=== PATIENT | female | born 1965 | race Caucasian/White ===

== ENCOUNTER → 2021-07-06 08:11 | Outpatient (BNVA) | payer OTHER, SELFPAY | PROVIDERS: PCP Internal Medicine; Visit Provider Nurse Practitioner Family | DX: Z13.89 Encounter for screening for other disorder (principal) ==

== ENCOUNTER → 2021-07-07 10:56 | Outpatient (BNVA) | payer OTHER, SELFPAY | PROVIDERS: PCP Internal Medicine; Visit Provider Psychiatry & Neurology Neurology | DX: G51.31 Clonic hemifacial spasm, right (principal); G47.10 Hypersomnia, unspecified; R06.83 Snoring; Z72.820 Sleep deprivation | CPT/HCPCS: 64612; 99212; J0585 ==

== ENCOUNTER → 2021-10-20 11:44 | Outpatient (BNVA) | payer OTHER, SELFPAY | PROVIDERS: PCP Internal Medicine; Visit Provider Psychiatry & Neurology Neurology | DX: G51.31 Clonic hemifacial spasm, right (principal) | CPT/HCPCS: 64612; 99211; J0585 ==

== ENCOUNTER → 2022-01-27 12:52 | Outpatient (BNVA) | payer OTHER, SELFPAY | PROVIDERS: PCP Internal Medicine; Visit Provider Psychiatry & Neurology Neurology | DX: G51.31 Clonic hemifacial spasm, right (principal) | CPT/HCPCS: 64612; 99211; J0585 ==

== ENCOUNTER → 2022-03-08 13:59 | Outpatient (BNVA) | payer OTHER, SELFPAY | PROVIDERS: PCP Internal Medicine; Visit Provider Nurse Practitioner Family | DX: Z13.89 Encounter for screening for other disorder (principal) ==

== ENCOUNTER → 2022-06-24 13:34 | Outpatient (BNVA) | payer MEDICAID, SELFPAY | PROVIDERS: PCP Internal Medicine; Visit Provider Psychiatry & Neurology Neurology | DX: G51.31 Clonic hemifacial spasm, right (principal) | CPT/HCPCS: 64612; 99211; J0585 ==

== ENCOUNTER 2022-09-27 12:59 | Outpatient (AMB) | payer MEDICAID, SELFPAY ==
--- NOTE | 2022-09-27 13:00 | MHC.OFFVIS ---
Intake Vital Signs 09/27/22 13:01 Height 5 ft 3 in Weight 212 lb 6 oz BMI 37.6 BP 130/80 Blood Pressure Location Rt brachial Position Sitting Pulse 76 Pulse Source Pulse Oximeter Pulse Oximetry (%) 97 Oxygen Delivery Method Room Air Intake Visit Reasons: botox(b&b)-confirmed Intake Note: pt is here for botox Forming Process Line Worker Required: No Accompanied by: Self / Same As Patient Allergies Aspirin Allergy (Unknown, Uncoded 09/27/22 13:00) swelling Motrin Allergy (Unknown, Uncoded 09/27/22 13:00) swelling Percocet Allergy (Unknown, Uncoded 09/27/22 13:00) swelling HPI HPI Comments History of Present Illness Details ?Right hemifacial spasm ??? Dizziness... History of present illness: ? 57y/o female comes for treatment with botox . ??? side effects were explained again and patient agreed to the procedure . - side effects include increased weakness , droopy eyelids weakness of facial muscles etc. ??? Botulinum toxin type A 100 units lot number [id number] June 2024 was diluted with 1 cc of normal saline at a concentration of 10units in 0.1cc. ??? Muscles injected - ??? R lateral canthus 15units ??? Right upper eyelid laterally - 10units ??? Right lateral lower eyelid - 15 units medila lower eyelid - 5 units ??? Right upper lip 5 units ??? Right nasolabial fold - 15 units ??? Right zygomaticus major - 15 units ??? Total used 80 units ??? Discarded 20 units PFSH Medical History Anxiety Asthma Bilateral headaches Depression Diabetes HTN (hypertension) Hyperlipidemia Obesity Seizure Sleep disorder Trigeminal neuralgia Surgical History H/O endoscopy Hx of cholecystectomy Family History Father High blood pressure High cholesterol Heart disease Mother Arthritis Osteoporosis Heart disease High cholesterol Daughter Kidney transplant recipient Brother Kidney problem Social History Household Members: Spouse Alcohol intake: never Patient Tobacco Use Status: Never used Tobacco Physical Exam Vital Signs: Last Vital Signs Pulse 76 09/27/22 13:01 BP 130/80 09/27/22 13:01 Pulse Ox 97 09/27/22 13:01 Oxygen Delivery Method Room Air 09/27/22 13:01 BMI result Body Mass Index 37.6 Const General: cooperative and no acute distress Orientation/consciousness: patient oriented x3 Resp Effort & Inspection: normal respiratory effort and able to speak in complete sentences Neuro Other: Right upper eye lid droop Right lower facial hemispasm. Speech clear. General: patient oriented x3 Cognition (Neuro): normal cognition Psych Appearance: grossly normal Mental Status: mental status grossly normal Affect: normal affect Attitude: cooperative Office Procedures Botulinum toxin Injection 94018 - Facial Nerve Procedure code (CPT) selection complete Office Meds onabotulinumtoxinA Performing Provider: Michelle Sánchez MD Administered by: Michelle Sánchez MD on 09/27/22 13:35 Dose Route Admin Location Lot Number Expiration Date NDC Management Liaison 80 unit subcut [id number] 06/11/24 0398-5928-32 [employer] Comments: see HPI Assessment & Plan Assessment & Plan (1) 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
[2022-09-27 13:01] VITALS: BP 130/80; PULSE 76; O2SAT 97; BMI 37.6
== END 2022-09-27 13:25 | disposition home or self-care (01) ==
PROVIDERS: Visit Provider Psychiatry & Neurology Neurology
DX: G51.31 Clonic hemifacial spasm, right (principal)
CPT/HCPCS: 64612

== ENCOUNTER → 2022-09-27 12:59 | Outpatient (BNVA) | payer MEDICAID, SELFPAY | PROVIDERS: Visit Provider Psychiatry & Neurology Neurology | DX: G51.31 Clonic hemifacial spasm, right (principal) | CPT/HCPCS: 64612; J0585 ==

== ENCOUNTER 2022-10-12 08:48 | Outpatient (REF) | payer MEDICAID, SELFPAY ==
--- NOTE | ~2022-10-12 | MR_ITS ---
EXAMINATION: MR BRAIN WITHOUT AND WITH CONTRAST MR ANGIOGRAPHY HEAD WITHOUT CONTRAST CLINICAL INFORMATION: Sharp pain on left side of face and in teeth. COMPARISON: Brain MRI dated 02/11/2022. TECHNIQUE: Multiplanar, multisequence imaging of the brain was obtained without and with intravenous administration of contrast. 3-D xdft-wl-sknuvz MR angiography is performed. Multiple 3-D reformatted images are processed on the technologist workstation. Intravenous contrast: Gadavist 10 mL. FINDINGS: No diffusion abnormalities are identified to suggest an acute infarct. The ventricles are normal in size. No mass effect or midline shift is seen. Stable minimal scattered white matter signal changes noted of indeterminate clinical significance. No extra-axial fluid collections are seen. The brainstem and cerebellum are normal. On postcontrast imaging, there is no abnormal parenchymal or leptomeningeal enhancement. No pathologic magnetic susceptibility artifact is identified on the gradient refocused acquisition. There is no vascular compression of the cisternal segments of the trigeminal nerves. The CSF in [place] is preserved. The foramina ovale are normal. No cerebellopontine angle lesion is seen. There is no abnormal leptomeningeal enhancement corresponding to basilar cisterns. The third division of the trigeminal nerve is normal along its course in the textile clothing and footwear mechanic spaces. No marrow signal abnormality is seen within the mandible. There is no abnormal enhancement or edematous change corresponding to the second division of the trigeminal nerve within the infraorbital foramen or at the level of foramen rotundum. The cavernous sinuses opacify symmetrically. There are jbpj-so-iguohret degenerative changes in the temporomandibular joints. The craniovertebral junction, marrow signal, and midline structures are normal. The major intracranial flow voids at the level of the [place] are preserved. The dural venous sinus flow voids are maintained. The mastoid air cells and paranasal sinuses are well aerated. The orbits are normal. The pituitary axis structures are normal. MRA of the [place] demonstrates a normal caliber to the anterior and posterior circulation vasculature. No stenoses or occlusions are seen. No vascular malformation or aneurysms are identified. MR/MR head/brain wo/w con IMPRESSION: 1. Normal MRA of the head. No acute intracranial process. Stable minimal scattered white matter signal changes. No abnormal enhancement. 2. No visible neurovascular compression of the cisternal trigeminal nerve. 3. Jitk-cl-xwnliuqc degenerative changes of the temporomandibular joints.
--- NOTE | ~2022-10-12 | MR_ITS ---
EXAMINATION: MR BRAIN WITHOUT AND WITH CONTRAST MR ANGIOGRAPHY HEAD WITHOUT CONTRAST CLINICAL INFORMATION: Sharp pain on left side of face and in teeth. COMPARISON: Brain MRI dated 02/11/2022. TECHNIQUE: Multiplanar, multisequence imaging of the brain was obtained without and with intravenous administration of contrast. 3-D umns-kh-dncbzw MR angiography is performed. Multiple 3-D reformatted images are processed on the technologist workstation. Intravenous contrast: Gadavist 10 mL. FINDINGS: No diffusion abnormalities are identified to suggest an acute infarct. The ventricles are normal in size. No mass effect or midline shift is seen. Stable minimal scattered white matter signal changes noted of indeterminate clinical significance. No extra-axial fluid collections are seen. The brainstem and cerebellum are normal. On postcontrast imaging, there is no abnormal parenchymal or leptomeningeal enhancement. No pathologic magnetic susceptibility artifact is identified on the gradient refocused acquisition. There is no vascular compression of the cisternal segments of the trigeminal nerves. The CSF in [place] is preserved. The foramina ovale are normal. No cerebellopontine angle lesion is seen. There is no abnormal leptomeningeal enhancement corresponding to basilar cisterns. The third division of the trigeminal nerve is normal along its course in the church communications administrator spaces. No marrow signal abnormality is seen within the mandible. There is no abnormal enhancement or edematous change corresponding to the second division of the trigeminal nerve within the infraorbital foramen or at the level of foramen rotundum. The cavernous sinuses opacify symmetrically. There are iweq-wk-cawxfdtu degenerative changes in the temporomandibular joints. The craniovertebral junction, marrow signal, and midline structures are normal. The major intracranial flow voids at the level of the [place] are preserved. The dural venous sinus flow voids are maintained. The mastoid air cells and paranasal sinuses are well aerated. The orbits are normal. The pituitary axis structures are normal. MRA of the [place] demonstrates a normal caliber to the anterior and posterior circulation vasculature. No stenoses or occlusions are seen. No vascular malformation or aneurysms are identified. MR/MR angio head wo con IMPRESSION: 1. Normal MRA of the head. No acute intracranial process. Stable minimal scattered white matter signal changes. No abnormal enhancement. 2. No visible neurovascular compression of the cisternal trigeminal nerve. 3. Fljz-ts-znwhrgib degenerative changes of the temporomandibular joints.
== END 2022-10-12 08:49 | disposition home or self-care (01) ==
LOC: HO.MRI 08:48
PROVIDERS: PCP Internal Medicine; Visit Provider Psychiatry & Neurology Neurology
DX: G50.0 Trigeminal neuralgia (principal)
CPT/HCPCS: 70544; 70553; A9585

== ENCOUNTER 2022-12-29 13:36 | Outpatient (AMB) | payer MEDICAID, SELFPAY ==
--- NOTE | 2022-12-29 13:48 | MHC.OFFVIS ---
Intake Vital Signs 12/29/22 13:52 Height 5 ft 3 in Weight 212 lb 8 oz BMI 37.6 BP 138/84 Blood Pressure Location Lt brachial Position Sitting Respiration 16 Pulse 86 Pulse Source Pulse Oximeter Pulse Oximetry (%) 99 Oxygen Delivery Method Room Air Intake Visit Reasons: botox(b&b)-confirmed Intake Note: Pt presents to office for Botox injections. Allergies Aspirin Allergy (Unknown, Uncoded 12/29/22 13:49) swelling Motrin Allergy (Unknown, Uncoded 12/29/22 13:49) swelling Percocet Allergy (Unknown, Uncoded 12/29/22 13:49) swelling Medication List - Last Reconciled 12/29/22 by Michelle Sánchez MD acetaminophen (Pain Relief Extra Strength (acetaminophen)) 500 mg PO Q6H PRN atorvastatin 20 mg PO DAILY bupropion HCl 150 mg PO DAILY xjrgdbpanm-tpuqzpzfzdyuq-grqs 50-325-40 mg 1 tab PO Q4H PRN carbamazepine 200 mg PO BID chlorthalidone 25 mg PO DAILY clonazepam 0.5 mg PO DAILY PRN fluoxetine 20 mg PO DAILY gabapentin 800 mg PO BID hydroxyzine pamoate 25 - 50 mg PO BID PRN lisinopril 5 mg PO DAILY loratadine 10 mg PO DAILY metformin ER 1,000 mg PO BID montelukast 10 mg PO DAILY omeprazole 20 mg PO DAILY onabotulinumtoxinA (Botox) 100 units subcut .90 days polyethylene glycol 3350 17 grams PO DAILY propranolol 20 mg PO DAILY sertraline 25 mg PO DAILY sitagliptin phosphate (Januvia) 100 mg PO DAILY sucralfate 10 mL PO QID sumatriptan succinate 100 mg PO ONCE PRN white petrolatum-mineral oil 94-3 % (Systane Nighttime) 0.25 inches ophthalmic-Right BID PRN 7 days HPI HPI Comments History of Present Illness Details ?Right hemifacial spasm ??? Dizziness... History of present illness: ? 57y/o female comes for treatment with botox . ??? side effects were explained again and patient agreed to the procedure . - side effects include increased weakness , droopy eyelids weakness of facial muscles etc. ??? Botulinum toxin type A 100 units lot number [id number] Apr 2025 was diluted with 1 cc of normal saline at a concentration of 10units in 0.1cc. ??? Muscles injected - ??? R lateral canthus 15units ??? Right upper eyelid laterally - 10units ??? Right lateral lower eyelid - 15 units medila lower eyelid - 5 units ??? Right upper lip 5 units ??? Right nasolabial fold - 15 units ??? Serg Masseter 15 units each ??? Total used 95 units ??? Discarded 5 units PFSH Medical History Trigeminal neuralgia Bilateral headaches Obesity Seizure Hyperlipidemia Diabetes HTN (hypertension) Sleep disorder Anxiety Depression Asthma Surgical History H/O endoscopy Hx of cholecystectomy Family History Father High blood pressure High cholesterol Heart disease Mother Arthritis Osteoporosis Heart disease High cholesterol Daughter Kidney transplant recipient Brother Kidney problem Social History Household Members: Spouse Alcohol intake: never Patient Tobacco Use Status: Never used Tobacco Physical Exam Vital Signs: Last Vital Signs Pulse 86 12/29/22 13:52 Resp 16 12/29/22 13:52 BP 138/84 12/29/22 13:52 Pulse Ox 99 12/29/22 13:52 Oxygen Delivery Method Room Air 12/29/22 13:52 BMI result Body Mass Index 37.6 Const General: cooperative and no acute distress Orientation/consciousness: patient oriented x3 Resp Effort & Inspection: normal respiratory effort and able to speak in complete sentences Neuro Other: Right upper eye lid droop Right lower facial hemispasm. Speech clear. General: patient oriented x3 Cognition (Neuro): normal cognition Psych Appearance: grossly normal Mental Status: mental status grossly normal Affect: normal affect Attitude: cooperative Office Procedures Botulinum toxin Injection 30255 - Facial Nerve Procedure code (CPT) selection complete Office Meds onabotulinumtoxinA 100 unit solution for injection Performing Provider: Michelle Sánchez MD Performing Location: [facility] Administered by: Michelle Sánchez MD on 12/29/22 14:15 Dose Route Admin Location Dispensed Lot Number Expiration Date FORMERLY NAMED [facility] Pega Developer 95 unit subcut 100 units [id number] 04/13/25 9182-8018-13 [employer]OT[employer] 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
[2022-12-29 13:52] VITALS: BP 138/84; PULSE 86; RESP 16; O2SAT 99; BMI 37.6
== END 2022-12-29 14:11 | disposition home or self-care (01) ==
PROVIDERS: PCP Internal Medicine; Visit Provider Psychiatry & Neurology Neurology
DX: G51.31 Clonic hemifacial spasm, right (principal)
CPT/HCPCS: 64612

== ENCOUNTER → 2022-12-29 13:36 | Outpatient (BNVA) | payer MEDICAID, SELFPAY | PROVIDERS: PCP Internal Medicine; Visit Provider Psychiatry & Neurology Neurology | DX: G51.31 Clonic hemifacial spasm, right (principal) | CPT/HCPCS: 64612; 99211; J0585 ==

== ENCOUNTER 2023-04-03 12:05 | Outpatient (AMB) | payer MEDICAID, SELFPAY ==
--- NOTE | 2023-04-03 12:07 | A.OFFVIS_ITS ---
Intake Vital Signs 04/03/23 12:08 Height 5 ft 3 in Weight 205 lb 6 oz BMI 36.4 BP 136/78 Blood Pressure Location Lt brachial Position Sitting Respiration 16 Pulse 86 Pulse Source Pulse Oximeter Pulse Oximetry (%) 97 Oxygen Delivery Method Room Air Intake Visit Reasons: BOTOX (B&B) - Confirmed Intake Note: Pt presents to the office for Botox injections. Library Paraprofessional Required: No Allergies Aspirin Allergy (Unknown, Uncoded 04/03/23 12:08) swelling Motrin Allergy (Unknown, Uncoded 04/03/23 12:08) swelling Percocet Allergy (Unknown, Uncoded 04/03/23 12:08) swelling Medication List - Last Reconciled 04/03/23 by Michelle Sánchez MD acetaminophen (Pain Relief Extra Strength (acetaminophen)) 500 mg PO Q6H PRN atorvastatin 20 mg PO DAILY bupropion HCl 150 mg PO DAILY jevlgxkfic-fwbkldqmttghb-egws 50-325-40 mg 1 tab PO Q4H PRN carbamazepine 200 mg PO BID chlorthalidone 25 mg PO DAILY clonazepam 0.5 mg PO DAILY PRN fluoxetine 20 mg PO DAILY gabapentin 800 mg PO BID hydroxyzine pamoate 25 - 50 mg PO BID PRN lisinopril 5 mg PO DAILY loratadine 10 mg PO DAILY metformin ER 1,000 mg PO BID montelukast 10 mg PO DAILY omeprazole 20 mg PO DAILY onabotulinumtoxinA (Botox) 100 units subcut .90 days polyethylene glycol 3350 17 grams PO DAILY propranolol 20 mg PO DAILY sertraline 25 mg PO DAILY sitagliptin phosphate (Januvia) 100 mg PO DAILY sucralfate 10 mL PO QID sumatriptan succinate 100 mg PO ONCE PRN white petrolatum-mineral oil 94-3 % (Systane Nighttime) 0.25 inches ophthalmic- Right BID PRN 7 days HPI HPI Comments History of Present Illness Details ?Right hemifacial spasm ??? Dizziness... History of present illness: ? 57y/o female comes for treatment with botox . ??? side effects were explained again and patient agreed to the procedure . - side effects include increased weakness , droopy eyelids weakness of facial muscles etc. Effectiveness of last two botox: Change in intensity of spasms- decreased Change in frequency of spasms-decreased Changes in quality of life- better Have at least three months elapsed since last treatment (Last botox date - frequency of injections) 12/29/22 ??? Botulinum toxin type A 100 units lot number [id number] June 2025 was diluted with 1 cc of normal saline at a concentration of 10units in 0.1cc. ??? Muscles injected - ??? R lateral canthus 15units ??? Right upper eyelid laterally - 5units ??? Right lateral lower eyelid - 15 units medila lower eyelid - 5 units ??? Right upper lip 5 units ??? Right nasolabial fold - 15 units ??? Serg Masseter 15 units each ??? Total used 90 units ??? Discarded 10 units PFSH Medical History Trigeminal neuralgia Bilateral headaches Obesity Seizure Hyperlipidemia Diabetes HTN (hypertension) Sleep disorder Anxiety Depression Asthma Surgical History H/O endoscopy Hx of cholecystectomy Family History Father High blood pressure High cholesterol Heart disease Mother Arthritis Osteoporosis Heart disease High cholesterol Daughter Kidney transplant recipient Brother Kidney problem Social History Household Members: Spouse Alcohol intake: never Patient Tobacco Use Status: Never used Tobacco Physical Exam Vital Signs: Last Vital Signs Pulse 86 04/03/23 12:08 Resp 16 04/03/23 12:08 BP 136/78 04/03/23 12:08 Pulse Ox 97 04/03/23 12:08 Oxygen Delivery Method Room Air 04/03/23 12:08 BMI result Body Mass Index 36.4 Const General: cooperative and no acute distress Orientation/consciousness: patient oriented x3 Resp Effort & Inspection: normal respiratory effort and able to speak in complete sentences Neuro Other: Right upper eye lid droop Right lower facial hemispasm. Speech clear. General: patient oriented x3 Cognition (Neuro): normal cognition Psych Appearance: grossly normal Mental Status: mental status grossly normal Affect: normal affect Attitude: cooperative Office Procedures Botulinum toxin Injection 93521 - Facial Nerve Procedure code (CPT) selection complete Office Meds onabotulinumtoxinA 100 unit solution for injection Performing Provider: Michelle Sánchez MD Performing Location: [facility] [place] [facility] Administered by: Michelle Sánchez MD on 04/03/23 12:43 Dose Route Admin Location Dispensed Lot Number Expiration Date [facility] Art Coordinator 90 unit IM 100 units [id number] 06/11/25 3191-9328-29 [employer]/BOTOX Comments: see HPI Assessment & Plan Assessment & Plan (1) 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
[2023-04-03 12:08] VITALS: BP 136/78; PULSE 86; RESP 16; O2SAT 97; BMI 36.4
== END 2023-04-03 12:41 | disposition home or self-care (01) ==
PROVIDERS: PCP Internal Medicine; Visit Provider Psychiatry & Neurology Neurology
DX: G51.31 Clonic hemifacial spasm, right (principal)
CPT/HCPCS: 64612

== ENCOUNTER → 2023-04-03 12:05 | Outpatient (BNVA) | payer MEDICAID, SELFPAY | PROVIDERS: PCP Internal Medicine; Visit Provider Psychiatry & Neurology Neurology | DX: G51.31 Clonic hemifacial spasm, right (principal) | CPT/HCPCS: 64612; 99211; J0585 ==

== ENCOUNTER 2023-07-06 12:22 | Outpatient (AMB) | payer MEDICAID, SELFPAY ==
--- NOTE | 2023-07-06 12:23 | MHC.OFFVIS ---
Vital Signs 07/06/23 12:25 Height 5 ft 3 in Weight 205 lb BMI 36.3 BP 124/82 Blood Pressure Location Rt brachial Position Sitting Respiration 16 Pulse 70 Pulse Source Pulse Oximeter Pulse Oximetry (%) 100 Oxygen Delivery Method Room Air Intake Visit Reasons: Botox appt-CONF Intake Note: Pt presents tot he office for Botox injections. Fire Behavior Analyst Required: No Allergies Aspirin Allergy (Unknown, Uncoded 07/06/23 12:24) swelling Motrin Allergy (Unknown, Uncoded 07/06/23 12:24) swelling Percocet Allergy (Unknown, Uncoded 07/06/23 12:24) swelling Medication List - Last Reconciled 07/06/23 by Michelle Sánchez MD acetaminophen (Pain Relief Extra Strength (acetaminophen)) 500 mg PO Q6H PRN atorvastatin 20 mg PO DAILY bupropion HCl XL 150 mg PO DAILY dyqovygxxn-nlkqjeyyuxuto-jjaa 50-325-40 mg 1 tab PO Q4H PRN carbamazepine 200 mg PO BID chlorthalidone 25 mg PO DAILY clonazepam 0.5 mg PO DAILY PRN fluoxetine 20 mg PO DAILY gabapentin 800 mg PO BID hydroxyzine pamoate 25 - 50 mg PO BID PRN lisinopril 5 mg PO DAILY loratadine 10 mg PO DAILY metformin ER 1,000 mg PO BID montelukast 10 mg PO DAILY omeprazole 20 mg PO DAILY onabotulinumtoxinA (Botox) 100 units subcut .90 days polyethylene glycol 3350 17 grams PO DAILY propranolol 20 mg PO DAILY sertraline 25 mg PO DAILY sitagliptin phosphate (Januvia) 100 mg PO DAILY sucralfate 10 mL PO QID sumatriptan succinate 100 mg PO ONCE PRN white petrolatum-mineral oil 94-3 % (Systane Nighttime) 0.25 inches ophthalmic-Right BID PRN 7 days HPI Comments Details: ?Right hemifacial spasm ??? Dizziness... History of present illness: ? 57y/o female comes for treatment with botox . ??? side effects were explained again and patient agreed to the procedure . - side effects include increased weakness , droopy eyelids weakness of facial muscles etc. Effectiveness of last two botox: Change in intensity of spasms- decreased Change in frequency of spasms-decreased Changes in quality of life- better Have at least three months elapsed since last treatment (Last botox date - frequency of injections) 12/29/22 ??? Botulinum toxin type A 100 units lot number [id number] July 2025 was diluted with 1 cc of normal saline at a concentration of 10units in 0.1cc. ??? Muscles injected - ??? R lateral canthus 15units ??? Right upper eyelid laterally - 5units ??? Right lateral lower eyelid - 15 units medila lower eyelid - 5 units ??? Right upper lip 5 units ??? Right nasolabial fold - 10 units ??? Serg Masseter 15 units each Right Temporalis 20 units Right mentalis 5 units ??? Total used 100 units ??? PFSH Medical History Trigeminal neuralgia Bilateral headaches Obesity Seizure Hyperlipidemia Diabetes HTN (hypertension) Sleep disorder Anxiety Depression Asthma Surgical History H/O endoscopy Hx of cholecystectomy Family History Father High blood pressure High cholesterol Heart disease Mother Arthritis Osteoporosis Heart disease High cholesterol Daughter Kidney transplant recipient Brother Kidney problem Social History Household Members: Spouse Alcohol intake: never Patient Tobacco Use Status: Never used Tobacco Physical Exam Vital Signs: Last Vital Signs Pulse 70 07/06/23 12:25 Resp 16 07/06/23 12:25 BP 124/82 07/06/23 12:25 Pulse Ox 100 07/06/23 12:25 Oxygen Delivery Method Room Air 07/06/23 12:25 BMI result Body Mass Index 36.3 Const General: cooperative and no acute distress Orientation/consciousness: patient oriented x3 Resp Effort & Inspection: normal respiratory effort and able to speak in complete sentences Neuro Other: Right upper eye lid droop Right lower facial hemispasm. Speech clear. General: patient oriented x3 Cognition (Neuro): normal cognition Psych Appearance: grossly normal Mental Status: mental status grossly normal Affect: normal affect Attitude: cooperative Office Procedures Botulinum toxin Injection 71952 - Facial Nerve Procedure code (CPT) selection complete Office Meds onabotulinumtoxinA 100 unit solution for injection Performing Provider: Michelle Sánchez MD Performing Location: [facility] [place] [facility] Administered by: Michelle Sánchez MD on 07/06/23 12:43 Dose Route Admin Location Dispensed Lot Number Expiration Date NDC Braille Proofreader 100 unit subcut 100 units [id number] 07/11/25 8162-0551-45 [employer] 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
[2023-07-06 12:25] VITALS: BP 124/82; PULSE 70; RESP 16; O2SAT 100; BMI 36.3
== END 2023-07-06 12:42 | disposition home or self-care (01) ==
PROVIDERS: PCP Internal Medicine; Visit Provider Psychiatry & Neurology Neurology
DX: G51.31 Clonic hemifacial spasm, right (principal)
CPT/HCPCS: 64612

== ENCOUNTER → 2023-07-06 12:22 | Outpatient (BNVA) | payer MEDICAID, SELFPAY | PROVIDERS: PCP Internal Medicine; Visit Provider Psychiatry & Neurology Neurology | DX: G51.31 Clonic hemifacial spasm, right (principal) | CPT/HCPCS: 64612; 99211; J0585 ==

== ENCOUNTER 2023-10-09 12:27 | Outpatient (AMB) | payer MEDICAID, SELFPAY ==
[2023-10-09 12:28] VITALS: BMI 36.3
--- NOTE | 2023-10-09 12:28 | MHC.OFFVIS ---
Vital Signs 10/09/23 12:28 Height 5 ft 3 in Weight 205 lb BMI 36.3 Intake Visit Reasons: Botox-Unable to conf repetitive message Intake Note: Patient presents for botox injection Allergies Aspirin Allergy (Unknown, Uncoded 10/09/23 12:30) swelling Motrin Allergy (Unknown, Uncoded 10/09/23 12:30) swelling Percocet Allergy (Unknown, Uncoded 10/09/23 12:30) swelling Medication List - Last Reconciled 10/09/23 by Michelle Sánchez MD acetaminophen (Pain Relief Extra Strength (acetaminophen)) 500 mg PO Q6H PRN atorvastatin 20 mg PO DAILY bupropion HCl XL 150 mg PO DAILY gqjwdvmmup-krojhonmympha-qzqt 50-325-40 mg 1 tab PO Q4H PRN carbamazepine 200 mg PO BID chlorthalidone 25 mg PO DAILY clonazepam 0.5 mg PO DAILY PRN fluoxetine 20 mg PO DAILY gabapentin 800 mg PO BID hydroxyzine pamoate 25 - 50 mg PO BID PRN lisinopril 5 mg PO DAILY loratadine 10 mg PO DAILY metformin ER 1,000 mg PO BID montelukast 10 mg PO DAILY omeprazole 20 mg PO DAILY onabotulinumtoxinA (Botox) 100 units subcut .90 days polyethylene glycol 3350 17 grams PO DAILY propranolol 20 mg PO DAILY sertraline 25 mg PO DAILY sitagliptin phosphate (Januvia) 100 mg PO DAILY sucralfate 10 mL PO QID sumatriptan succinate 100 mg PO ONCE PRN white petrolatum-mineral oil 94-3 % (Systane Nighttime) 0.25 inches ophthalmic-Right BID PRN 7 days HPI Comments Details: ?Right hemifacial spasm ??? Dizziness... History of present illness: ? 58y/o female comes for treatment with botox . ??? side effects were explained again and patient agreed to the procedure . - side effects include increased weakness , droopy eyelids weakness of facial muscles etc. Effectiveness of last two botox: Change in intensity of spasms- decreased Change in frequency of spasms-decreased Changes in quality of life- better Have at least three months elapsed since last treatment (Last botox date - frequency of injections) yes ??? Botulinum toxin type A 100 units lot number [id number] August 2025 was diluted with 1 cc of normal saline at a concentration of 10units in 0.1cc. ??? Muscles injected - ??? R lateral canthus 15units ??? Right upper eyelid laterally - 5units ??? Right lateral lower eyelid - 15 units medila lower eyelid - 5 units ??? Right upper lip 5 units ??? Right nasolabial fold - 10 units ??? Serg Masseter 15 units each Right Temporalis 20 units Right mentalis 5 units ??? Total used 100 units ??? PFSH Medical History Trigeminal neuralgia Bilateral headaches Obesity Seizure Hyperlipidemia Diabetes HTN (hypertension) Sleep disorder Anxiety Depression Asthma Surgical History H/O endoscopy Hx of cholecystectomy Family History Father High blood pressure High cholesterol Heart disease Mother Arthritis Osteoporosis Heart disease High cholesterol Daughter Kidney transplant recipient Brother Kidney problem Social History Household Members: Spouse Alcohol intake: never Patient Tobacco Use Status: Never used Tobacco Physical Exam Vital Signs: BMI result Body Mass Index 36.3 Const General: cooperative and no acute distress Orientation/consciousness: patient oriented x3 Resp Effort & Inspection: normal respiratory effort and able to speak in complete sentences Neuro Other: Right upper eye lid droop Right lower facial hemispasm. Speech clear. General: patient oriented x3 Cognition (Neuro): normal cognition Psych Appearance: grossly normal Mental Status: mental status grossly normal Affect: normal affect Attitude: cooperative Office Procedures Botulinum toxin Injection 65676 - Facial Nerve Procedure code (CPT) selection complete Office Meds onabotulinumtoxinA 100 unit solution for injection Performing Provider: Michelle Sánchez MD Performing Location: [facility] Administered by: Michelle Sánchez MD on 10/09/23 15:29 Dose Route Admin Location Dispensed Lot Number Expiration Date [facility] Shipping [employer] Receiving Weigher 100 unit subcut 100 units [id number] 08/11/25 5640-4656-67 [employer] Comments: see HPI Assessment & Plan Assessment & Plan (1) 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
== END 2023-10-09 12:53 | disposition home or self-care (01) ==
PROVIDERS: PCP Internal Medicine; Visit Provider Psychiatry & Neurology Neurology
DX: G51.31 Clonic hemifacial spasm, right (principal)
CPT/HCPCS: 64612

== ENCOUNTER → 2023-10-09 12:27 | Outpatient (BNVA) | payer MEDICAID, SELFPAY | PROVIDERS: PCP Internal Medicine; Visit Provider Psychiatry & Neurology Neurology | DX: G51.31 Clonic hemifacial spasm, right (principal) | CPT/HCPCS: 64612; 99211; J0585 ==

== ENCOUNTER 2024-01-15 10:16 | Outpatient (AMB) | payer MEDICAID, SELFPAY ==
--- NOTE | 2024-01-15 10:20 | MHC.OFFVIS ---
Intake Visit Reasons: Botox appt Intake Note: Patient presents for follow up Allergies Aspirin Allergy (Unknown, Uncoded 01/15/24 10:20) swelling Motrin Allergy (Unknown, Uncoded 01/15/24 10:20) swelling Percocet Allergy (Unknown, Uncoded 01/15/24 10:20) swelling Medication List - Last Reconciled 01/15/24 by Michelle Sánchez MD acetaminophen (Pain Relief Extra Strength (acetaminophen)) 500 mg PO Q6H PRN atorvastatin 20 mg PO DAILY bupropion HCl XL 150 mg PO DAILY lbdpkxppgc-wuvumpkqbclrk-ccfw 50-325-40 mg 1 tab PO Q4H PRN carbamazepine 200 mg PO BID chlorthalidone 25 mg PO DAILY clonazepam 0.5 mg PO DAILY PRN fluoxetine 20 mg PO DAILY gabapentin 800 mg PO BID hydroxyzine pamoate 25 - 50 mg PO BID PRN lisinopril 5 mg PO DAILY loratadine 10 mg PO DAILY metformin ER 1,000 mg PO BID montelukast 10 mg PO DAILY omeprazole 20 mg PO DAILY onabotulinumtoxinA (Botox) 100 units subcut .90 days polyethylene glycol 3350 17 grams PO DAILY propranolol 20 mg PO DAILY semaglutide (Ozempic) 1 mg subcut QWEEK sertraline 25 mg PO DAILY sitagliptin phosphate (Januvia) 100 mg PO DAILY sucralfate 10 mL PO QID sumatriptan succinate 100 mg PO Q2-4H PRN white petrolatum-mineral oil 94-3 % (Systane Nighttime) 0.25 inches ophthalmic-Right BID PRN 7 days HPI Comments Details: ?Right hemifacial spasm ??? Dizziness... History of present illness: ? 58y/o female comes for treatment with botox . ??? side effects were explained again and patient agreed to the procedure . - side effects include increased weakness , droopy eyelids weakness of facial muscles etc. Effectiveness of last two botox: Change in intensity of spasms- decreased Change in frequency of spasms-decreased Changes in quality of life- better Have at least three months elapsed since last treatment (Last botox date - frequency of injections) yes ??? Botulinum toxin type A 100 units lot number [id number] Jan 2026 was diluted with 1 cc of normal saline at a concentration of 10units in 0.1cc. ??? Muscles injected - ??? R lateral canthus 15units ??? Right upper eyelid laterally - 5units ??? Right lateral lower eyelid - 15 units medila lower eyelid - 5 units ??? Right upper lip 5 units ??? Right nasolabial fold - 10 units ? Right Temporalis 20 units Right mentalis 5 units ??? Total used 75 units ??? PFSH Medical History Trigeminal neuralgia Bilateral headaches Obesity Seizure Hyperlipidemia Diabetes HTN (hypertension) Sleep disorder Anxiety Depression Asthma Surgical History H/O endoscopy Hx of cholecystectomy Family History Father High blood pressure High cholesterol Heart disease Mother Arthritis Osteoporosis Heart disease High cholesterol Daughter Kidney transplant recipient Brother Kidney problem Social History Household Members: Spouse Alcohol intake: never Patient Tobacco Use Status: Never used Tobacco Physical Exam Const General: cooperative and no acute distress Orientation/consciousness: patient oriented x3 Resp Effort & Inspection: normal respiratory effort and able to speak in complete sentences Neuro Other: Right upper eye lid droop Right lower facial hemispasm. Speech clear. General: patient oriented x3 Cognition (Neuro): normal cognition Psych Appearance: grossly normal Mental Status: mental status grossly normal Affect: normal affect Attitude: cooperative Office Procedures Botulinum toxin Injection 33857 - Facial Nerve Procedure code (CPT) selection complete Office Meds onabotulinumtoxinA 100 unit solution for injection Performing Provider: Michelle Sánchez MD Performing Location: [facility] [place] [facility] Administered by: Michelle Sánchez MD on 01/15/24 10:38 Dose Route Admin Location Dispensed Lot Number Expiration Date [facility] [address] Interpreter 75 unit subcut 100 units [id number] 01/11/26 1290-6356-39 [employer] Comments: see HPI Assessment & Plan Assessment & Plan (1) 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
== END 2024-01-15 10:36 | disposition home or self-care (01) ==
LOC: HO.HSMS 10:16
PROVIDERS: PCP Internal Medicine; Visit Provider Psychiatry & Neurology Neurology
DX: G51.31 Clonic hemifacial spasm, right (principal)
CPT/HCPCS: 64612

== ENCOUNTER → 2024-01-15 10:16 | Outpatient (BNVA) | payer MEDICAID, SELFPAY | PROVIDERS: PCP Internal Medicine; Visit Provider Psychiatry & Neurology Neurology | DX: G51.31 Clonic hemifacial spasm, right (principal) | CPT/HCPCS: 64612; 99211; J0585 ==

== ENCOUNTER 2024-05-08 12:18 | Outpatient (AMB) | payer MEDICAID, SELFPAY ==
[2024-05-08 12:20] VITALS: BP 124/82; PULSE 78; O2SAT 97; BMI 34.2
--- NOTE | 2024-05-08 12:20 | A.OFFVIS_ITS ---
Vital Signs 05/08/24 12:20 Height 5 ft 3 in Weight 193 lb 4 oz BMI 34.2 BP 124/82 Blood Pressure Location Lt brachial Position Sitting Pulse 78 Pulse Source Pulse Oximeter Pulse Oximetry (%) 97 Oxygen Delivery Method Room Air Intake Visit Reasons: Botox Intake Note: Pt presents to the office today for botox injections. Allergies Aspirin Allergy (Unknown, Uncoded 05/08/24 12:24) swelling Motrin Allergy (Unknown, Uncoded 05/08/24 12:24) swelling Percocet Allergy (Unknown, Uncoded 05/08/24 12:24) swelling Medication List - Last Reconciled 05/08/24 by Michelle Sánchez MD acetaminophen (Pain Relief Extra Strength (acetaminophen)) 500 mg PO Q6H PRN atorvastatin 20 mg PO DAILY bupropion HCl XL 150 mg PO DAILY bvurwvkjge-fhdivtvqwbtfc-bglc 50-325-40 mg 1 tab PO Q4H PRN carbamazepine ER (Tegretol XR) 400 mg PO BID chlorthalidone 25 mg PO DAILY clonazepam 0.5 mg PO DAILY PRN fluoxetine 20 mg PO DAILY gabapentin 800 mg PO BID hydroxyzine pamoate 25 - 50 mg PO BID PRN lisinopril 5 mg PO DAILY loratadine 10 mg PO DAILY metformin ER 1,000 mg PO BID montelukast 10 mg PO DAILY omeprazole 20 mg PO DAILY onabotulinumtoxinA (Botox) 100 units subcut .90 days polyethylene glycol 3350 17 grams PO DAILY propranolol 20 mg PO DAILY sertraline 25 mg PO DAILY sumatriptan succinate 100 mg PO Q2-4H PRN tirzepatide (weight loss) (Zepbound) mg subcut QWEEK white petrolatum-mineral oil 94-3 % (Systane Nighttime) 0.25 inches ophthalmic- Right BID PRN 7 days HPI Comments Details: ?Right hemifacial spasm ??? Dizziness... History of present illness: ? 58y/o female comes for treatment with botox . ??? side effects were explained again and patient agreed to the procedure . - side effects include increased weakness , droopy eyelids weakness of facial muscles etc. Effectiveness of last two botox: Change in intensity of spasms- decreased Change in frequency of spasms-decreased Changes in quality of life- better Have at least three months elapsed since last treatment - yes Botox 100units [id number] 06/2026 was diluted with 1 cc of normal saline at a concentration of 10units in 0.1cc. ??? Muscles injected - ??? R lateral canthus 15units ??? Right upper eyelid laterally - 5units ??? Right lateral lower eyelid - 15 units medila lower eyelid - 5 units ??? Right upper lip 5 units ??? Right nasolabial fold - 10 units ? Right Temporalis 20 units Right mentalis 5 units ??? Total used 75 units ??? PFSH Medical History Trigeminal neuralgia Bilateral headaches Obesity Seizure Hyperlipidemia Diabetes HTN (hypertension) Sleep disorder Anxiety Depression Asthma Surgical History H/O endoscopy Hx of cholecystectomy Family History Father High blood pressure High cholesterol Heart disease Mother Arthritis Osteoporosis Heart disease High cholesterol Daughter Kidney transplant recipient Brother Kidney problem Social History Household Members: Spouse Alcohol intake: never Patient Tobacco Use Status: Never used Tobacco Physical Exam Vital Signs: Last Vital Signs Pulse 78 05/08/24 12:20 BP 124/82 05/08/24 12:20 Pulse Ox 97 05/08/24 12:20 Oxygen Delivery Method Room Air 05/08/24 12:20 BMI result Body Mass Index 34.2 Const General: cooperative and no acute distress Orientation/consciousness: patient oriented x3 Resp Effort & Inspection: normal respiratory effort and able to speak in complete sentences Neuro Other: Right upper eye lid droop Right lower facial hemispasm. Speech clear. General: patient oriented x3 Cognition (Neuro): normal cognition Psych Appearance: grossly normal Mental Status: mental status grossly normal Affect: normal affect Attitude: cooperative Office Procedures Botulinum toxin Injection 50977 - Facial Nerve Procedure code (CPT) selection complete Office Meds onabotulinumtoxinA 100 unit solution for injection Performing Provider: Michelle Sánchez MD Performing [place] [facility] [place] [facility] Administered by: Michelle Sánchez MD on 05/08/24 13:15 Dose Route Admin Location Dispensed Lot Number Expiration Date [facility] Behavioral Health Technician 75 unit subcut 100 units [id number] [employer] 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
--- OUTSIDE RECORDS SUMMARY | 2024-05-08 15:12 | XMS_ITS | Encounter Summary ---
Author Organization [facility] Address [address] [place] [address] Care Team Providers Care Blueprint Cutter Name Role Phone Fredy Rdz MD Primary Care Provider [phone] Reason for Visit * Reason Onset Date Comments Med Refill 04/30/2024 Encounter Details Date Type Department Care Team (Late st Contact Info) Description 04/30/2024 Telephone Bariatric Surgery - [place] 175 [facility] [address] [place] [phone] Jonas Sharma MD 175 [facility] [address] [place] [address] Med Refill Social History Tobacco Use Types Packs/Day Years Used Date Smoking Tobacco: Never Smokeless Tobacco: Never Alcohol Use Standard Drinks/Week Comments No 0 (1 standard drink = 0.6 oz pur e alcohol) Comments Unknown Sex and Gender Information Value Date Recorded Sex Assigned at Not on file Legal Sex Female 11:46 PM EST Gender Identity Not on file Sexual Orientation Not on file documented as of this encounter Progress Notes * Meli Tariq MA - 04/30/2024 9:54 AM EST Patient did well on Zepbound 5 mgs and would like a refill with titration. If appropriate, please send script for Zepbound 7.5 mgs to their pharmacy. The patient does have a follow up in 08/06/2024 documented in this encounter Plan of Treatment Upcoming Encounters Date Type Department Care Team (Late st Contact Info) Description 05/09/2024 3:45 PM EST Treatment [facility] Occupational Therapy [address] [phone] Og Kim COTA/Maurilio 05/15/2024 3:00 PM EST Treatment [facility] [address] [phone] Og Kim COTA/Maurilio 05/20/2024 10:30 AM EDT Treatment [facility] Outpatient [facility] [address] [phone] Kaitlyn Carranza, PT 05/21/2024 2:00 PM EDT Treatment [facility] Occupational Therapy [address] [phone] Dav Casas, OT 05/22/2024 11:00 AM EDT Treatment [facility] [address] [phone] Kaitlyn Carranza, PT 05/27/2024 11:00 AM EDT Treatment [facility] [address] [phone] Kaitlyn Carranza, PT 05/29/2024 11:00 AM EDT Treatment [facility] [address] [phone] Kaitlyn Carranza, PT 06/17/2024 1:15 PM EDT Office Visit Orthopedic Surgery [facility] [address] [phone] Traci Quinonez PA [address] [phone] 08/06/2024 2:15 PM EDT Office Visit Bariatric Surgery - [place] 175 [facility] [address] [place] [phone] Jonas Sharma MD 175 [facility] [address] [place] [address] 09/30/2024 1:00 PM EDT Office Visit Orthopedic Surgery - [place] 250 175 [facility] [address] [place] [phone] Keith Light DPM [address] [phone] documented as of this encounter Goals Goal Patient Goal Type Associated Problems Recent Progress Patient-Stated? Author Pt goal General Yes Dav Casas, OT Note: Get better Get hand stronger STG 4-6 visits General No Dav Casas, OT Note: Patient will report <=2/10 pain in L elbow, Patient will demo L wrist AROM improved by 10* Patient will demo L general intern strength >= 10 to be able to hold a cup, Patient will demo improved functional use of L upper extremity as evidenced by Quick Dash score <= 81 to be able to wipe the counters, and Patient will perform initial HEP MOD I LTG 12 visits General No Dav Casas, OT Note: Patient will report <=1/10 pain in L elbow, Patient will demo L wrist AROM WFL for basic ADLs, Patient will demo L elbow/wrist strength WFL for light IADLs , Patient will demo L general intern strength >= 20 to be able to pull pants to waist, Patient will demo improved functional use of L upper extremity as evidenced by Quick Dash score <= 50 to be able to wash dishes, and Patient will perform HEP MOD I documented as of this encounter Visit Diagnoses Not on filedocumented in this encounter Care Teams Blueprint Cutter Relationship Specialty Start Date End Date Fredy Rdz MD [address] [place] [phone] PCP - General Internal Medicine 12/24/20 documented as of this encounter
--- OUTSIDE RECORDS SUMMARY | 2024-05-08 15:12 | XMS_ITS | Encounter Summary ---
Author Organization [facility] Address [address] [place] [address] Care Team Providers Care Mechanical Piping Designer Name Role Phone Fredy Rdz MD Primary Care Provider Reason for Visit * Consultation (Routine) - Authorized Specialty Diagnoses / Procedures Referred By Carolina freeman Referred To Contact Physical Therapy Diagnoses Chronic right hip pain Keith Light, ALISSA 175 [facility] [address] [place] [address] Phone: tel: fax: Referral ID Status Reason Start Date Expiration Date Visits Requested Visits Authorized [id number] Authorized Consult and Treat 04/02/2024 04/02/2025 20 20 Encounter Details Date Type Department Care Team (Latest Contact Info) Description 04/25/2024 3:00 PM EST Evaluation [facility] [place] [address] [phone] Kaitlyn Carranza, PT Chronic right hip pain Social History Tobacco Use Types Packs/Day Years [...] as of this encounter Progress Notes * Kaitlyn Carranza, LEYDI - 04/25/2024 3:00 PM EST [facility] - Outpatient PHYSICAL THERAPY EVALUATION Date: 04/25/2024 Visit Number: 1 Patient Name: Denise Harrison : 1965 Age: 58 y.o. Gender: female Diagnosis: ICD-10-CM ICD-9-CM 1. Chronic right hip pain M25.551 719.45 Ambulatory referral to Physical Therapy and Athletic Training G89.29 338.29 Date of Onset/Surgery: 04/25/2024 Referring Provider: Keith Light DPM Insurance: Pay[place] / Plan[place] / Product Type: *No Product type* / Patient identified by: Kaitlyn Carranza PT Language: Video Applications Support Engineer service provided for pt. preferred language of Togolese. Applications Support Engineer # [id number] Chart Reviewed: Yes Medications: Current Outpatient Medications on File Prior to Visit Medication Sig Dispense Refill alcohol swabs pads, medicated 1 (one) time. USE two (2) times a day AND FOR INJECT ozempic atorvastatin (LIPITOR) 20 mg tablet Take 1 tablet (20 mg total) by mouth 1 (one) time each day. azelastine (OPTIVAR) 0.05 % ophthalmic solution Administer 1 drop into affected eye(s) 2 times daily. blood-glucose meter misc daily. buPROPion XL (WELLBUTRIN XL) 150 mg 24 hr tablet Take 1 Tablet by mouth daily calcium citrate-vitamin D3 250 mg-5 mcg (200 unit) tablet 1 tablet. carBAMazepine (TEGretol) 200 mg tablet TAKE 1 TABLET BY MOUTH two (2) times a day chlorthalidone (HYGROTON) 25 mg tablet Take 1 tablet (25 mg total) by mouth 1 (one) time each day. clonazePAM (KlonoPIN) 0.5 mg tablet Take 1 tablet (0.5 mg total) by mouth 1 (one) time each day if needed. Max Daily Amount: 0.5 mg cyclobenzaprine (FLEXERIL) 10 mg tablet Take 1 tablet (10 mg total) by mouth 3 times daily as needed. diclofenac (Voltaren Arthritis Pain) 1 % topical gel Apply 4 g topically 2 (two) times a day. 240 g1 docusate sodium (COLACE) 100 mg capsule Take 1 capsule (100 mg total) by mouth 2 times daily. doxepin (SINEquan) 10 mg capsule TAKE ONE CAPSULE BY MOUTH DAILY AT BEDTIME FOR SLEEP ergocalciferol (VITAMIN D-2) 1,250 mcg (50,000 unit) capsule TAKE ONE CAPSULE BY MOUTH EACH WEEK FOR 8 DOSES FLUoxetine (PROzac) 20 mg capsule Take 1 capsule (20 mg total) by mouth. FLUTICASONE PROPION-SALMETEROL INHL Inhale into the lungs. fluticasone propionate (FLONASE) 50 mcg/actuation nasal spray Administer 1 spray into affected nostril(s) daily. gabapentin (NEURONTIN) 800 mg tablet Take 1 tablet (800 mg total) by mouth 3 (three) times a day. glipiZIDE (GLUCOTROL) 10 mg tablet Take 1 tablet (10 mg total) by mouth 2 (two) times a day before meals. glucose blood test strip once daily E11.69 Check daily hydrOXYzine pamoate (VISTARIL) 25 mg capsule TAKE 1 TO 2 CAPSULES BY MOUTH two (2) times a day NEEDED Inject Ease Lancets 28 gauge lancets USE TO TEST FINGER STICK BLOOD SUGAR ONCE DAILY lisinopriL (PRINIVIL,ZESTRIL) 5 mg tablet Take 1 tablet (5 mg total) by mouth 1 (one) time each day. loratadine 10 mg capsule Take 1 Tablet by mouth daily metFORMIN XR (GLUCOPHAGE-XR) 500 mg 24 hr tablet TAKE 1 TABLET two (2) times a day WITH A MEAL methocarbamoL (ROBAXIN) 750 mg tablet Take 1 tablet (750 mg total) by mouth 3 times daily. methylPREDNISolone (MEDROL DOSPAK) 4 mg tablet TAKE DIRECTED PER PACKAGE instructions [facility] by Other route daily. montelukast (SINGULAIR) 10 mg tablet Take 1 tablet (10 mg total) by mouth at bedtime. OLANZapine (ZyPREXA) 10 mg tablet Take 1 tablet (10 mg total) by mouth. omeprazole (PriLOSEC) [address] capsule Take 1 capsule (20 mg total) by mouth 1 (one) time each day. polyethylene glycol (PEG) 17 gram/dose oral powder DISSOLVE 17 gramos IN WATER AND TAKE ONCE DAILY propranoloL (INDERAL) 20 mg tablet Take 1 tablet (20 mg total) by mouth 1 (one) time each day. sertraline (ZOLOFT) 100 mg tablet Take 1 tablet (100 mg total) by mouth 1 (one) time each day. sucralfate (CARAFATE) 100 mg/mL suspension Take 10 mL (1 g total) by mouth. SUMAtriptan (IMITREX) 100 mg tablet TAKE 1 TABLET BY MOUTH NEEDED for migraine. TAKE 1 TAB AT onset REPEAT IN 2 HOUR NEEDED . maximum 2 TAB ONCE DAILY tirzepatide, weight loss, (Zepbound) 5 mg/0.5 mL injection Inject 0.5 mL (5 mg total) under the skin every 7 (seven) days for 28 days. 2 mL 0 No current facility-administered medications on file prior to visit. Discussed current medications that may impact therapy. Medication list obtained and reviewed. Referto document in medical record. Advised Patient to contact MD with any questions regarding medications and importance of managing medication information. has a past medical history of Class 1 obesity due to excess calories with serious comorbidity and body mass index (BMI) of 34.0 to 34.9 in adult (10/16/2018), DM (diabetes mellitus) ([facility]), Fibromyalgia, HTN (hypertension), and Hyperlipidemia. has a past surgical history that includes Other surgical history and Cholecystectomy. is allergic to carrot, carrot juice, apple, ascorbic acid, ascorbic acid (vitamin c), aspirin, metformin, oxycodone, oxycodone-acetaminophen, pioglitazone, and raspberry. Precautions: HTN, DM type 2 Concurrent Services: No Concurrent Services Previous Medical Care/Therapy: none SUBJECTIVE History of Present Illness/Subjective Report: Pt presents with c/o R hip pain after falling onto her left hip last September. Pt reported having no imaging since the fall. Pt reported that her pain has worsen over time. Pt referred to PT for evaluation and treatment. Current Functional Limitations: Reported by Patient difficulty with standing, sitting, walking, stair negotiation and sleeping Is the patient at Risk for Falls: No Pain: Posterolateral region of R hip, chronic, achy, 7/10 currently, 10/10 at worst Home Environment: Pt lives in one level home with 2 steps to enter. Prior Level of Function: independent with ambulation and ADLs, occasional use of SPC OBJECTIVE General/Functional Assessments/Extremity Assessments: Transfers: sit <-> stand: antalgic, decreased WB RLE, use of arms of chair, increased time; sit <-> supine via log rolling: antalgic, increased time Ambulation: independent, antalgic, decreased step length and foot clearance (B) Posture: sitting: decreased WB R hemipelvis; standing: increased weight shift to L Palpation: TTP R lumbar paraspinal, quadratus lumborum and gluteus medius muscles; TTP over R PSIS and SI joint; TTP along iliac crest on R; central PA glide, L1-L5: hypomobile +pain Range of Motion: Lumbar AROM: Flexion: 75% +pain Extension: 50%+pain SB L: 50% +pain SB R: 75% Rot L: 25% +pain Rot R: 25% Hip IR PROM: WNL on L, not tested on R secondary to pain Hip ER PROM: 35 deg on L, not tested on R secondary to pain Hip extension PROM: decreased bilaterally to approximately 5 deg +pain on r Hamstring length: WNL (B) Strength: Hip MMT: ABD: 3+/5 L, 3-/5 R +pain Extension: 3+/5 L, 3-/5 R +pain Special Tests: Straight leg raise test: positive Crossed straight leg raise test: negative Lumbar distraction: negative Juliann's test: positive (B) +pain TREATMENT INTERVENTION Modalities: None performed Procedures: None performed ASSESSMENT/Response to Treatment: Denise Harrison is a 58 y.o. female presenting for outpatient physical therapy evaluation with complaints of R-sided low back and hip pain. Significant clinical findings include: decreased lumbar andhip ROM, decreased hip strength, increased lumbopelvic myofascial tension, impaired functional mobility and pain. Patients progress may be limited by pain. Skilled Physical therapy is medically necessary to address limitations in order to allow for greater ease during functional mobility. Rehabilitation Potential: Rehab Potential: Functional Improvement in Response to Therapy Motivation for Rehab: Good Support Structure: Good Learning Needs: Were Patient Learning needs assessed: Yes Learning Preferences: Printed Materials Barriers to Learning: Language Patient Education: [x] Discussed, with patient and/or caregiver, the recommended plan of care/goals, the importance oftherapy and appointment compliance in order to achieve goals in a timely manner. Education provided: instructed pt to apply ice to right side of posterior hip and low back for 10-15 minutes 2-3x/day Education Provided To: Patient utilizing Explanation as mode(s) of education. Response to Education: Verbal Understanding GOALS Short-term goals: Pt will demonstrate compliance with HEP Pt will report decreased pain level to < 6/10 at worst Pt will tolerate 15 minutes of therex 3x/wk Pt will increase R hip MMT to 3+/5 Pt will demonstrate equal WB when sitting Long-term goals: Pt will demonstrate independence with HEP Pt will report decreased pain level to < 3/10 at worst Pt will demonstrate at least 75% lumbar AROM without pain Pt will increase hip MMT to 4-/5 Pt will transfer sit <-> stand with equal WB PLAN POC Development/Review: Initial Evaluation; Participants: Patient Skilled Therapy Plan Required: YES- Reasons for Rehab and Medical Necessity -- Function in Community Planned Therapy Interventions: Cold Pack, Hot Pack, Kinesiotaping, Manual Therapy, Neuromuscular Re-education, TENS, Therapeutic Activity, Therapeutic Exercise, and Other: postural education [Trial therex with TENS in order to increase pt's tolerance to exercise] Recommended Consults: none Equipment Recommended: none; Equipment Provided: none Frequency/Duration: 2x/wk for 4 wks BILLING TOTAL TREATMENT TIME: 60 Minutes Evaluation Medium Complexity Justification ::: A history of present problem with 1 - 2 personal factors and/or co-morbidities that impact the plan of care and An examination of body systems using standardized tests and measures in addressing a total of 3 or more elements from any of the following body structures and functions, activity limitations, and/or participation restrictions Documentation completed by Kaitlyn Carranza, LEYDI [address] [address] Dept: [phone] Dept PATIENT NAME: Denise Harrison : 1965 Certification: This is to certify that the above named patient, who is under my care, requires skilled Therapy services as described in the above treatment plan. I further certify that the services outlined in this plan are skilled and medically necessary. I have reviewed this plan for rehabilitation services, and I recommend that these services continue to meet the above stated goals and plan. SIGNATURE: DATE Keith Light DPM Referring provider documented in this encounter Plan of Treatment Upcoming Encounters Date Type Department Care Team (Late st Contact Info) Description 05/09/2024 3:45 PM EST [facility] [address] [phone] Og Kim COTA/Maurilio 05/15/2024 3:00 PM EST [facility] [address] [phone] Og Kim COTA/Maurilio 05/20/2024 10:30 AM EDT Treatment [facility] [address] [phone] Kaitlyn Carranza, PT 05/21/2024 2:00 PM EDT Treatment [facility] Occupational Therapy [address] [phone] Dav Casas, OT 05/22/2024 11:00 AM EDT Treatment [address] [phone] Kaitlyn Carranza, PT 05/27/2024 11:00 AM EDT Treatment [facility] [address] [phone] Kaitlyn Carranza, PT 05/29/2024 11:00 AM EDT Treatment [address] [phone] Kaitlyn Carranza, PT 06/17/2024 1:15 PM EDT Office Visit Orthopedic Surgery [place] [address] [phone] Traci Quinonez PA [address] [place] [phone] 08/06/2024 2:15 PM EDT Office Visit Bariatric Surgery [place] [address] [place] [phone] Jonas Sharma MD [address] [place], [place] [phone] 09/30/2024 1:00 PM EDT Office Visit [facility] [place] [address] [place] [phone] Keith Light DPM [address] [place], [place] [phone] documented as of this encounter Goals Goal Patient Goal Type Associated Problems Recent Progress Patient-Stated? Author Pt goal General Yes Dav Casas, OT Note: Get better Get hand stronger STG 4-6 visits General No Dav Casas, OT Note: Patient will report <=2/10 pain in L elbow, Patient will demo L wrist AROM improved by 10* Patient will demo L delivery route driver strength >= 10 to be able to [...] light IADLs , Patient will demo L delivery route driver strength >= 20 to be able to pull pants to waist, Patient will demo improved functional use of L upper extremity as evidenced by Quick Dash score <= 50 to be able to wash dishes, and Patient will perform HEP MOD I documented as of this encounter Visit Diagnoses Diagnosis Chronic right hip pain documented in this encounter Orders Outpatient Referral Count Last Ordered Date Fir st Ordered Date AMB REFERRAL TO PHYSICAL [facility] 1 04/25/2024 documented in this encounter Care Teams Mechanical Piping Designer Relationship Specialty Start Date End Date Fredy Rdz MD [address] [place] [phone] PCP - General Internal Medicine 12/24/20 documented as of this encounter
--- OUTSIDE RECORDS SUMMARY | 2024-05-08 15:12 | XMS_ITS | Encounter Summary ---
Author Organization [facility] Address [address] [place] [address] Care Team Providers Care High School Hvac R Instructor Name Role Phone Fredy Rdz MD Primary Care Provider [phone] Reason for Visit * Reason Onset Date Comments Med Refill 04/05/2024 Zepbound Encounter Details Date Type Department Care Team (Late st Contact Info) Description 04/05/2024 Telephone Bariatric Surgery - [place] 175 [facility] [address] [place] [phone] Jonas Sharma MD 175 [facility] [address] [place] [address] Med Refill (Zepbound) Social History Tobacco Use Types Packs/Day Years [...] as of this encounter Progress Notes * Mary Rg - 04/05/2024 3:03 PM EST Patient did well on Zepbound 2.5 mgs and would like a refill with titration. If appropriate, please send script for Zepbound 5 mgs to their pharmacy. The patient does have a follow up in 08/06/2024 documented in this encounter Plan of Treatment Upcoming Encounters Date Type Department Care Team (Late st Contact Info) Description 05/09/2024 3:45 PM EST [facility] [address] [phone] Og Kim COTA/Maurilio 05/15/2024 3:00 PM EST [facility] [address] [phone] Og Kim MENDENHALL/Maurilio 05/20/2024 10:30 AM EDT Treatment [facility] [address] [phone] Kaitlyn Carranza, PT 05/21/2024 2:00 PM EDT Treatment [facility] Occupational Therapy [address] [phone] Dav Casas, OT 05/22/2024 11:00 AM EDT Treatment [facility] [address] [phone] Kaitlyn Carranza, PT 05/27/2024 11:00 AM EDT Treatment [facility] [address] [phone] Kaitlyn Carranza, PT 05/29/2024 11:00 AM EDT Treatment [facility] [address] [phone] Kaitlyn Carranza, PT 06/17/2024 1:15 PM EDT Office Visit Orthopedic Surgery [facility] [address] [phone] Traci Quinonez PA [address] [phone] 08/06/2024 2:15 PM EDT Office Visit Bariatric Surgery [facility] 175 [facility] [address] [place] [phone] Jonas Sharma MD 175 [facility] [address] [place] [address] 09/30/2024 1:00 PM EDT Office Visit Orthopedic Surgery - [place] 250 175 [facility] 250 [place] [phone] Keith Light DPM 175 [facility] 250 [place] [address] documented as of this encounter Goals Goal Patient Goal Type Associated Problems Recent Progress Patient-Stated? Author Pt goal General Yes Dav Casas, OT Note: Get better Get hand stronger STG 4-6 visits General No Dav Casas, OT Note: Patient will report <=2/10 pain in L elbow, Patient will demo L wrist AROM improved by 10* Patient will demo L ssds mk 2 advanced operator strength >= 10 to be able to [...] light IADLs , Patient will demo L ssds mk 2 advanced operator strength >= 20 to be able to pull pants to waist, Patient will demo improved functional use of L upper extremity as evidenced by Quick Dash score <= 50 to be able to wash dishes, and Patient will perform HEP MOD I documented as of this encounter Visit Diagnoses Not on filedocumented in this encounter Care Teams High School Hvac R Instructor Relationship Specialty Start Date End Date Fredy Rdz MD [address] [place] [phone] PCP - General Internal Medicine 12/24/20 documented as of this encounter
--- OUTSIDE RECORDS SUMMARY | 2024-05-08 15:12 | XMS_ITS | Encounter Summary ---
Author Organization [facility] Address [address] [place] [address] Care Team Providers Care Smooth Plater Name Role Phone Fredy Rdz MD Primary Care Provider [phone] Reason for Visit * Consultation (Routine) - Authorized Specialty Diagnoses / Procedures Referred By Contact Referred To Contact Occupational Therapy Diagnoses Lateral epicondylitis of left elbow Carpal tunnel syndrome of left wrist Traci Quinonez PA 174 [facility] 140 [place] [address] Phone: tel:[phone] fax:[phone] [facility] Occupational Therapy [address] [address] Phone: tel: fax: Referral ID Status Reason Start Date Expiration Date Visits Requested Visits Authorized [id number] Authorized Specialty Services Required 04/09/2024 04/09/2025 5 5 Encounter Details Date Type Department Care Team (Late st Contact Info) Description 04/23/2024 2:30 PM EST Treatment [facility] Occupational Therapy [address] [phone] Og Kim COTA/Maurilio Lateral epicondylitis of left elbow (Primary Dx); Carpal tunnel syndrome of left wrist Social History Tobacco Use Types Packs/Day Years [...] as of this encounter Progress Notes * LYLA Zimmerman - 04/23/2024 2:30 PM EST [facility] - Outpatient OCCUPATIONAL THERAPY DAILY TREATMENT NOTE Date: 04/23/2024 Visit Number: 2 Patient Name: Denise Harrison : 1965 Age: 58 y.o. Gender: female Diagnosis: No diagnosis found. Date of Onset: 04/09/2024 Referring Provider: Traci Quinonez PA Insurance: Pay[place] / Product Type: *No Product type* / Medications: Current Outpatient Medications on File Prior [...] mg tablet TAKE DIRECTED PER PACKAGE instructions [facility] by Other route daily. montelukast (SINGULAIR) 10 [...] facility-administered medications on file prior to visit. Allergies: is allergic to carrot, carrot juice, apple, ascorbic acid, ascorbic acid (vitamin c), aspirin, metformin, oxycodone, oxycodone-acetaminophen, pioglitazone, and raspberry. Precautions: None specified SUBJECTIVE Subjective Report: my wrist is really painful Chart Reviewed: Yes Pain: 8 OBJECTIVE Able to manage all items independently TREATMENT INTERVENTION Procedures: Modalities- U/S 50% 8 min, 0.8 for decreased pain for lat epi. Theract- education provided on neutral wrist for decreased pain from carpel tunnel, educated to usewrist splint for night use to ensure neutral positioning over night. -educated on use of gentle massage for decreased pain as well as K tape for lat epi and wrist support. Pain Reassessment: 5 Assessment/Response To Treatment: Good Patient stated that K tape in both areas was helping already before end of session. Patient Education: Education provided: Yes Education Provided To: Patient utilizing Explanation mode(s) of education Response to Education: Good PLAN POC Development/Review: No Change in the Plan of Care; Participants: Patient Equipment Recommended: none; Equipment Provided: none Total Treatment Time: 40 TOTAL TREATMENT TIME: 40 Minutes Documentation completed by LYLA Zimmerman documented in this encounter Plan of Treatment Upcoming Encounters Date Type Department Care Team (Late st Contact Info) Description 05/09/2024 3:45 PM EST Treatment [facility] Occupational Therapy [address] [place] [phone] Og Kim COTA/Maurilio 05/15/2024 3:00 PM EST Treatment [facility] Occupational Therapy [address] [phone] Og Kim COTA/Maurilio 05/20/2024 10:30 AM EDT Treatment [facility] [address] [phone] Kaitlyn Carranza, PT 05/21/2024 2:00 PM EDT Treatment [facility] Occupational Therapy [address] [phone] Dav Casas, OT 05/22/2024 11:00 AM EDT Treatment [facility] [address] [phone] Kaitlyn Carranza, PT 05/27/2024 11:00 AM EDT Treatment [facility] [address] [phone] Kaitlyn Carranza, PT 05/29/2024 11:00 AM EDT Treatment [facility] [address] [phone] Kaitlyn Carranza, PT 06/17/2024 1:15 PM EDT Office Visit Orthopedic [facility] [address] [phone] Traci Quinonez PA [address] [phone] 08/06/2024 2:15 PM EDT Office Visit Bariatric Surgery [facility] [address] [phone] Jonas Sharma MD [address] [address] 09/30/2024 1:00 PM EDT Office Visit Orthopedic Surgery [facility] 250 175 [facility] 250 [place] [phone] Keith Light, DPM 175 [facility] 250 [place] [address] documented as of this encounter Goals Goal Patient Goal Type Associated Problems Recent Progress Patient-Stated? Author Pt goal General Yes Dav Casas, OT Note: Get better Get hand stronger STG 4-6 visits General No Dav Casas, OT Note: Patient will report <=2/10 pain in L elbow, Patient will demo L wrist AROM improved by 10* Patient will demo L rental boats caretaker strength >= 10 to be able to [...] light IADLs , Patient will demo L rental boats caretaker strength >= 20 to be able to pull pants to waist, Patient will demo improved functional use of L upper extremity as evidenced by Quick Dash score <= 50 to be able to wash dishes, and Patient will perform HEP MOD I documented as of this encounter Visit Diagnoses Diagnosis Lateral epicondylitis of left elbow- Primary Carpal tunnel syndrome of left wrist documented in this encounter Care Teams Smooth Plater Relationship Specialty Start Date End Date Fredy Rdz MD [address] [place] [phone] PCP - General Internal Medicine 12/24/20 documented as of this encounter
--- OUTSIDE RECORDS SUMMARY | 2024-05-08 15:12 | XMS_ITS | Encounter Summary ---
Author Organization [facility] Address [address] [place] [address] Care Team Providers Care Unified Communications Architect Name Role Phone Fredy Rdz MD Primary Care Provider [phone] Reason for Visit * Consultation (Routine) - Authorized Specialty Diagnoses / Procedures Referred By Contact Referred To Contact Occupational Therapy Diagnoses Lateral epicondylitis of left elbow Carpal tunnel syndrome of left wrist Traci Quinonez PA 174 [facility] [address] [place] [address] Phone: tel:[phone] fax:[phone] [facility] Occupational Therapy [address] [address] Phone: tel: fax: Referral ID Status Reason Start Date Expiration Date Visits Requested Visits Authorized [id number] Authorized Specialty Services Required 04/09/2024 04/09/2025 5 5 Encounter Details Date Type Department Care Team (Latest Contact Info) Description 04/15/2024 2:15 PM EST Evaluation [facility] Occupational Therapy [address] [address] Dav Casas, OT Lateral epicondylitis of left elbow; Carpal tunnel syndrome of left wrist Social [...] as of this encounter Progress Notes * Dav Casas, OT - 04/15/2024 2:15 PM EST Images from the original note were not included. [facility] - Outpatient OCCUPATIONAL THERAPY EVALUATION Date: 04/15/2024 Visit Number: 1 Patient Name: Denise Harrison : 1965 Age: 58 y.o. Gender: female Diagnosis: ICD-10-CM ICD-9-CM 1. Lateral epicondylitis of left elbow M77.12 726.32 Ambulatory referral to Occupational Therapy 2. Carpal tunnel syndrome of left wrist G56.02 354.0 Ambulatory referral to Occupational Therapy Date of Onset: 04/09/2024 Referring Provider: Traci Quinonez PA Insurance: Pay[place] / Plan[place] / Product Type: *No Product type* / Language: Speaks and understands Micronesian as preferred language with no donor services manager required has a past medical history of Class 1 obesity due to excess calories with serious comorbidity and body mass index (BMI) of 34.0 to 34.9 in adult (10/16/2018), DM (diabetes mellitus) ([facility]), Fibromyalgia, HTN (hypertension), and Hyperlipidemia. has a past surgical history that includes Other surgical history and Cholecystectomy. is allergic to carrot, carrot juice, apple, ascorbic acid, ascorbic acid (vitamin c), aspirin, metformin, oxycodone, oxycodone-acetaminophen, pioglitazone, and raspberry. Precautions: None specified Is the patient at Risk for Falls: No Concurrent Services: No Concurrent Services History of Present Illness: Pt reports > 6 year hx pain in L elbow. Pt also reports she has carpal tunnel in L wrist. Received a cortisone shot in L wrist 1 mo ago with no significant relief. Has not had a cortisone shot in L elbow. SUBJECTIVE Current Functional Limitations: Reported by Patient Everything Pain: L elbow 3/10 L wrist 7/10 Home Environment: Lives with daughter NYLON HOT WIRE CUTTER assist 4 hrs/day. manager pool assists with Adls, IADLs, rides Pt does not drive Prior Level of Function: Has assist for ADLs, IADLs OBJECTIVE General Observations/Comments: Pt able to manage personal items MOD I Cognition: Pt able to follow 2-3 step directions for OT eval Dominant Hand: R Urgent Care Nurse Practitioner Right 52 pounds Left 5 pounds OT Shoulder ROM: Right Left AROM PROM SHOULDER AROM PROM WNL WNL Flexion 115 125 WNL WNL Abduction 95 105 WNL WNL Internal Rotation To stomach WFL WNL WNL External Rotation 35 45 OT Elbow/forearm ROM Right Left AROM PROM ELBOW/ FOREARM AROM PROM WNL WNL Extension WNL WNL WNL WNL Flexion WNL WNL WNL WNL Pronation WNL WNL WNL WNL Supination WNL WNL OT Wrist ROM Right Left AROM PROM WRIST AROM PROM WNL WNL Extension 55 75 WNL WNL Flexion 5 30 OT Digit ROM WFL Strength R UE 5/5 throughout L sh 3-/5 L elbow flex 5/5 L elbow ext 4/5 L sup/pron 4-/5 due to pain L wrist 3-/5 5/5: Normal - Full ROM and tolerates maximum resistance 4/5: Good - Full ROM and tolerates moderate resistance 4-/5: Good Minus - Full ROM and tolerates less than moderate resistance Breaks with resistance 3+/5: Fair Plus - Full ROM and tolerates minimal resistance Breaks with resistance 3/5: Fair - Full ROM against gravity and tolerates no resistance 3-/5: Fair Minus - < Full ROM against gravity 2+/5: Poor Plus - <50% ROM against gravity OR full ROM gravity eliminated with minimal resistance 2/5: Poor - Full ROM gravity eliminated and tolerates no resistance 2-/5: Poor Minus - < full ROM gravity eliminated 1/5: Trace 0/5: No muscle activation Palpation: Tender to touch L lateral elbow Special Tests: + Fernandez test Other Assessments: QuickDASH - Disability of Arm, Shoulder, or Hand Rate your ability to do the following activities in the past week: Open a tight or new jar: 5 - Unable Do heavy mail examiner (eg wash laura, wash floors) : 4 - Severe difficulty Carry a shopping bag or briefcase : 4 - Severe difficulty Wash your back : 5 - Unable Use a knife to cut food: 5 - Unable Recreational activities in which you take some force or impact through your arm, shoulder or hand (eg golf, hammering, tennis, etc) : 4 - Severe difficulty During the past week, to what extent has your arm, shoulder or hand problem interfered with your normal social activities with family, friends, neighbours or groups? : 4 - Quite a bit During the past week, were you limited in your work or other regular daily activities as a result of your arm, shoulder or hand problem? : 5 - Unable Rate the severity of the following symptoms in the last week: Arm, shoulder or hand pain : 5 - Extreme Tingling (pins and needles) in your arm, shoulder or hand : 5 - Extreme During the past week, how much difficulty have you had sleeping because of the pain in your arm, shoulder or hand? : 4 - Severe difficulty QuickDASH Score QuickDASH Score: 88.64 Classification: Severe Disability Pain Reassessment: Unchanged ASSESSMENT Denise Harrison is a 58 y.o. female presenting for outpatient occupational therapy with complaints of Pain in L elbow and wrist. Significant clinical findings include: Decreased AROM, decreased strength. Skilled Occupational therapy is medically necessary to improved fx'l use L UE. Rehabilitation Potential: Rehab Potential: Condition Has Potential to Improve Learning Needs: Were Patient Learning needs assessed Yes Learning Needs: Plan of Care and Rehabilitation Techniques and Procedures Learning Preferences: Printed Materials Barriers to Learning: No Barriers to Learning Patient Education: [x] Discussed, with patient and/or caregiver, the importance of therapy and appointment compliance in order to achieve goals in a timely manner. Education provided: Role of OT, POC Education Provided To: Patient utilizing Explanation mode(s) of education Response to Education: Verbal Understanding GOALS Goals Addressed This Visit's Progress LTG 12 visits Patient will report <=1/10 pain in L elbow, Patient will demo L wrist AROM WFL for basic ADLs, Patient will demo L elbow/wrist strength WFL for light IADLs , Patient will demo L hydraulic miner blasting strength >= 20 to be able to pull pants to waist, Patient will demo improved functional use of L upper extremity as evidenced by Quick Dash score <= 50 to be able to wash dishes, and Patient will perform HEP MOD I Pt goal (pt-stated) Get better Get hand stronger STG 4-6 visits Patient will report <=2/10 pain in L elbow, Patient will demo L wrist AROM improved by 10* Patient will demo L hydraulic miner blasting strength >= 10 to be able to hold a cup, Patient will demo improved functional use of L upper extremity as evidenced by Quick Dash score <= 81 to be able to wipe the counters, and Patient will perform initial HEP MOD I PLAN POC Development/Review: Initial Evaluation; Participants: Patient Skilled Therapy Plan Required: YES- Reasons for Rehab and Medical Necessity -- Reduce Need for Assist with Functional Activity/ADL's/Mobility and Function in Community Planned Therapy Interventions: Therapeutic Activity (00851), Therapeutic Exercise (39128), Ultrasound (26564), Manual Therapy (54693), and Iontophoresis (18743) Planned Therapy Duration: 12 visits BILLING (This Date of Service) TOTAL TREATMENT TIME: 60 Minutes Evaluation Low Complexity Justification ::: A history with no personal factors and/or co-morbidities that impact the plan of care and An examination of body system(s) using standardized tests and measures addressing 1 - 2 elements from any of the following: body structures and functions, activity limitations, and/or participation restrictions Documentation completed by LASHANDA Dempsey OCCUPATIONAL THERAPY [address] [place] [phone] Dept: [phone] Dept PATIENT NAME: Denise Harrison : 1965 [...] above stated goals and plan. SIGNATURE: DATE Traci Quinonez PA Referring provider documented in this encounter Plan of Treatment Upcoming Encounters Date Type Department Care Team (Late st Contact Info) Description 05/09/2024 3:45 PM EST Treatment [facility] Occupational Therapy [address] [phone] Og Kim MENDENHALL/L 05/15/2024 3:00 PM EST Treatment [facility] Occupational Therapy [address] [phone] Og Kim MENDENHALL/L 05/20/2024 10:30 AM EDT Treatment [facility] Outpatient [facility] [address] [phone] Kaitlyn Carranza, PT 05/21/2024 2:00 PM EDT Treatment [facility] Occupational Therapy [address] [phone] Dav Casas, OT 05/22/2024 11:[address] [facility] [address] [phone] Kaitlyn Carranza, PT 05/27/2024 11:[address] [facility] [address] [phone] Kaitlyn Carranza, PT 05/29/2024 11:[address] [facility] [address] [phone] Kaitlyn Carranza, PT 06/17/2024 1:15 PM EDT Office Visit Orthopedic Surgery [facility] [address] [phone] Traci Quinonez PA [address] [phone] 08/06/2024 2:15 PM EDT Office Visit Bariatric Surgery [facility] 175 [facility] [address] [place] [phone] Jonas Sharma MD 175 [facility] [address] [place] [address] 09/30/2024 1:00 PM EDT Office Visit Orthopedic Surgery - [place] 250 175 [facility] [address] [place] [phone] Keith Light DPM 175 [facility] [address] [place] [address] documented as of this encounter Goals Goal Patient Goal Type Associated Problems Recent Progress Patient-Stated? Author Pt goal General Yes Dav Casas, OT Note: Get better Get hand stronger STG 4-6 visits General No Dav Casas, OT Note: Patient will report <=2/10 pain in L elbow, Patient will demo L wrist AROM improved by 10* Patient will demo L hydraulic miner blasting strength >= 10 to be able to [...] light IADLs , Patient will demo L hydraulic miner blasting strength >= 20 to be able to pull pants to waist, Patient will demo improved functional use of L upper extremity as evidenced by Quick Dash score <= 50 to be able to wash dishes, and Patient will perform HEP MOD I documented as of this encounter Visit Diagnoses Diagnosis Lateral epicondylitis of left elbow Carpal tunnel syndrome of left wrist documented in this encounter Orders Outpatient Referral Count Last Ordered Date Fir st Ordered Date AMB REFERRAL TO OCCUPATIONAL THERAPY 05/2024 documented in this encounter Care Teams Unified Communications Architect Relationship Specialty Start Date End Date Fredy Rdz MD [address] [place] [address] PCP - General Internal Medicine 12/24/20 documented as of this encounter
--- OUTSIDE RECORDS SUMMARY | 2024-05-08 15:12 | XMS_ITS | Encounter Summary ---
Author Organization [facility] Address [address] [place] [address] Care Team Providers Care Veneer Taper Name Role Phone Fredy Rdz MD Primary Care Provider [phone] Reason for Referral * Consultation (Routine) - Authorized Specialty Diagnoses / Procedures Referred By Carolina freeman Referred To Contact Physical Therapy Diagnoses Acute pain of right shoulder Traci Quinonez PA 174 [facility] [address] [place] [address] Phone: tel: fax: [facility] Outpatient Rehabilitation [facility] [address] [address] Phone: tel: fax: Referral ID Status Reason Start Date Expiration Date Visits Requested Visits Authorized [id number] Authorized Specialty Services Required 05/06/2024 05/06/2025 1 1 Reason for Visit * Reason Comments Pain Encounter Details Date Type Department Care Team (Late st Contact Info) Description 05/06/2024 1:30 PM EST Office Visit Orthopedic Surgery - [place] [address] [facility] [address] [place] [phone] Traci Quinonez PA 174 [facility] [address] [place] [address] Acute pain of right shoulder (Primary Dx) Social History Tobacco Use Types Packs/Day Years [...] as of this encounter Progress Notes * KOKO Arellano - 05/06/2024 1:30 PM EST CHIEF COMPLAINT: Pain of the Left Ring Finger had concerns including Pain of the Left Ring Finger. IDENTIFIER: Denise Harrison is a 58 y.o. old female SUBJECTIVE: Denise Harrison is here for follow up on 05/06/2024 for left hand pain and numbness tingling. She does have a history of diffuse left hand pain. She has a baseline rheumatologic labs that were normal.At last visit the biggest issue was numbness tingling waking up at night. Cortisone injection performed to the left carpal tunnel which did help significantly. She is getting some mild pain over the left lateral epicondyle and forearm and she was getting some therapy for this which helped. Biggest issue today is right shoulder pain after she fell on Monday. She fell onto her right shoulder and she is now having significant pain and trouble moving it. She went to the ER and they checked her kneebut she did not mention the shoulder issue at that time. She cannot take NSAIDs due to allergy. No numbness tingling in her right arm. PAST MEDICAL/SURGICAL HISTORY: Patient Active Problem List Diagnosis Date Noted Abnormal liver function tests 01/26/2024 Allergic rhinitis 01/26/2024 Asthma 01/26/2024 Central obesity 01/26/2024 Dyslipidemia 01/26/2024 Lumbar spondylosis 01/26/2024 Morbid obesity (CMS/HCC) 01/26/2024 Severe obesity (BMI 35.0-39.9) with comorbidity (CMS/HCC) 01/26/2024 Plantar fasciitis, bilateral 01/26/2024 Proteinuria 01/26/2024 Psychogenic nonepileptic seizure 01/26/2024 Radiculitis, lumbosacral 01/26/2024 Hypertension 01/26/2024 Chronic pain syndrome 01/26/2024 Obstructive sleep apnea syndrome 01/26/2024 DM (diabetes mellitus) ([facility]) 12/18/2023 Hyperlipidemia 12/18/2023 Fibromyalgia 12/18/2023 History of cholecystectomy 06/15/2022 History of sleeve gastrectomy 03/01/2022 Obesity (BMI 30-39.9) 12/08/2021 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 05/19/2020 Other hyperlipidemia 04/30/2020 Chronic midline low back pain without sciatica 02/20/2020 Intestinal malabsorption following gastrectomy 07/17/2019 Ileitis 10/16/2018 Elevated liver enzymes 08/03/2018 Essential hypertension 10/05/2017 Mixed hyperlipidemia 10/05/2017 Type 2 diabetes mellitus without complication, without long-term current use of insulin ([facility]) 10/05/2017 HONORIO (obstructive sleep apnea) 10/05/2017 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 ACTIVE MEDICATIONS: Current Outpatient Medications on File Prior to Visit Medication Sig Dispense Refill acetaminophen (TYLENOL) 500 mg tablet Take 2 tablets (1,000 mg total) by mouth every 6 (six) hours if needed for mild pain for up to 10 days. 30 tablet 0 alcohol swabs pads, medicated 1 (one) time. [...] 1 tablet (750 mg total) by mouth 4 (four) times a day for 7 days. 28 each 0 methylPREDNISolone (MEDROL DOSPAK) 4 mg tablet TAKE DIRECTED PER PACKAGE instructions [facility] by Other route daily. montelukast (SINGULAIR) 10 [...] TAB ONCE DAILY tirzepatide, weight loss, (Zepbound) 7.5 mg/0.5 mL injection Inject 0.5 mL (7.5 mg total) under theskin every 7 (seven) days for 28 days. 2 mL 0 [DISCONTINUED] methocarbamoL (ROBAXIN) 750 mg tablet Take 1 tablet (750 mg total) by mouth 3 times daily. [DISCONTINUED] tirzepatide, weight loss, (Zepbound) 5 mg/0.5 mL injection Inject 0.5 mL (5 mg total) under the skin every 7 (seven) days for 28 days. 2 mL 0 No current facility-administered medications on file prior to visit. ALLERGIES: Allergies Allergen Reactions Carrot Hives and Rash Other Reaction(s): UNKNOWN Per [facility]- Itching in face and Hands-Also pt allergic to Fresh Fruit and Vegatables. Carrot Juice Other Reaction(s): Hives/Urticaria, Rash/Dermatitis Per [facility]- Itching in face and Hands-Also pt allergic to Fresh Fruit and Vegatables. Apple Itching Ascorbic Acid As per [facility]- Itchin in mouth and throat. Ascorbic Acid (Vitamin C) Other Reaction(s): itching in mouth and throat As per [facility]- Itchin in mouth and throat. Aspirin Oxycodone Itching Pioglitazone Patient reports mediaction causes throat discomfort Patient reports mediaction causes throat discomfort Raspberry Other Reaction(s): itching and swelling in mouth and throat PHYSICAL EXAM: Visit Vitals Smoking Status Never APPEARANCE: Alert and in no acute distress EXTREMITIES: Extremities warm and well perfused without clubbing, cyanosis, or edema Left hand no hypothenar, thenar or interosseous wasting. She can make a full fist with hypothenar, thenar interosseous musculature intact. Negative Tinel's test mildly positive Phalen's test. No tingling reproduced with tapping over cubital tunnel. Mild pain to palpation over left lateral epicondyle. Focusing on her right shoulder no skin abnormalities are noted. Actively forward flexion is only about 20 or 30 degrees with pain. Exam is difficult due to patient's pain. No crepitus. There is no ecchymoses. Active forward flexion is about 90. Negative drop arm test. Unable to assess strength at supraspinatus infraspinatus or subscapularis. Unable to perform abduction external rotation passivelydue to pain. External rotation about 40 degrees. VASCULAR:well perfused with normal pulses in the distal extremities and no peripheral edema noted NEURO: Awake, alert and oriented SKIN: Skin color, texture, turgor normal. No rashes or lesions. PSYCH: does not appear depressed or anxious and oriented to time, place and person LABS/IMAGING: Lab Results Component Value Date HGBA1C 0.0 09/18/2023 Xrays reviewed: XR Shoulder 2+ Views Right Date of Visit: 05/06/2024 Reason for visit: Right shoulder pain Views: AP, Grashey Y and axillary right shoulder Comparison: None Findings: No fracture, dislocation or lytic lesions. On [place]view there is a faint calcification adjacent to greater tuberosity. Mild AC joint arthritis. No proximal migration humeral head. Mild narrowing of subacromial space. Impression: No acute findings. Mild narrowing of subacromial space and faint calcification IMPRESSION: 1. Acute pain of right shoulder PLAN: The details of the visit were reviewed with the patient. Pertinent history, and objective findings were reviewed, along with the diagnoses: Left hand is feeling better after cortisone injection. Sheis having some mild elbow pain. Recommended no further treatment for this currently. For the right shoulder recommended physical therapy, heat and Tylenol Will see her back in 6 weeks time for clinical recheck. Denise Harrison acknowledges understanding of the above plan and agrees to follow recommendations and/or take medications as prescribed. No orders of the defined types were placed in this encounter. @ELECSIG@ documented in this encounter Plan of Treatment Upcoming Encounters Date Type Department Care Team (Late st Contact Info) Description 05/09/2024 3:45 PM EST Treatment [facility] Occupational Therapy [address] [phone] Og Kim COTA/Maurilio 05/15/2024 3:00 PM EST Treatment [facility] Occupational Therapy [address] [phone] Og Kim COTA/Maurilio 05/20/2024 10:30 AM EDT Treatment [facility] [address] [phone] Kaitlyn Carranza, PT 05/21/2024 2:00 PM EDT Treatment [facility] Occupational Therapy [address] [phone] Dav Casas, OT 05/22/2024 11:00 AM EDT Treatment [facility] Outpatient [facility] [address] [phone] Kaitlyn Carranza, PT 05/27/2024 11:00 AM EDT Treatment [facility] [address] [phone] Kaitlyn Carranza, PT 05/29/2024 11:00 AM EDT Treatment [facility] [address] [phone] Kaitlyn Carranza, PT 06/17/2024 1:15 PM EDT Office Visit Orthopedic Surgery - [place] [address] [place] [phone] Traci Quinonez PA [address] [place] [phone] 08/06/2024 2:15 PM EDT Office Visit Bariatric Surgery [facility] [address] [place] [phone] [facility]as [facility] MD [facility] [address] [place], [place] [phone] 09/30/2024 1:00 PM EDT Office Visit Orthopedic Surgery [facility] 250 [address] [facility] [address] [place] [phone] Keith Light DPM 175 [facility] [address] [place], [place] [phone] Scheduled Referrals Name Type Priority Associated Diagnoses Order Schedule Ambulatory referral to Physical Therapy and Athletic Training Outpatient Referral Routine Acute pain of right shoulder 1 Occurrences starting 05/06/2024 until 05/06/2025 documented as of this encounter Goals Goal Patient Goal Type Associated Problems Recent Progress Patient-Stated? Author Pt goal General Yes Dav Casas, OT Note: Get better Get hand stronger STG 4-6 visits General No Dav Casas, OT Note: Patient will report <=2/10 pain in L elbow, Patient will demo L wrist AROM improved by 10* Patient will demo L guest relation officer strength >= 10 to be able to [...] light IADLs , Patient will demo L guest relation officer strength >= 20 to be able to pull pants to waist, Patient will demo improved functional use of L upper extremity as evidenced by Quick Dash score <= 50 to be able to wash dishes, and Patient will perform HEP MOD I documented as of this encounter Visit Diagnoses Diagnosis Acute pain of right shoulder- Primary documented in this encounter Care Teams Veneer Taper Relationship Specialty Start Date End Date Fredy Rdz MD [facility] [place] [address] PCP - General Internal Medicine 12/24/20 documented as of this encounter
--- OUTSIDE RECORDS SUMMARY | 2024-05-08 15:12 | XMS_ITS | Encounter Summary ---
Author Organization [facility] Address [address] [place] [address] Care Team Providers Care Bushel Worker Name Role Phone Fredy Rdz MD Primary Care Provider [phone] Reason for Visit * Consultation (Routine) - Authorized Specialty Diagnoses / Procedures Referred By Contact Referred To Contact Occupational Therapy Diagnoses Lateral epicondylitis of left elbow Carpal tunnel syndrome of left wrist Traci Quinonez PA 174 [facility] [address] [place] [address] Phone: tel:[phone] fax:[phone] [facility] Occupational Therapy [address] [address] Phone: tel: fax: Referral ID Status Reason Start Date Expiration Date Visits Requested Visits Authorized [id number] Authorized Specialty Services Required 04/09/2024 04/09/2025 5 5 Encounter Details Date Type Department Care Team (Late st Contact Info) Description 05/02/2024 3:00 PM EST [facility] [address] [phone] Og Kim COTA/Maurilio Lateral epicondylitis [...] encounter Progress Notes * LYLA Zimmerman - 05/02/2024 3:00 PM EST [facility] - Outpatient OCCUPATIONAL THERAPY DAILY TREATMENT NOTE Date: 05/02/2024 Visit Number: 3 Patient Name: Denise Harrison : 1965 Age: 58 y.o. Gender: female Diagnosis: ICD-10-CM ICD-9-CM 1. Lateral epicondylitis of left elbow M77.12 726.32 2. Carpal tunnel syndrome of left wrist G56.02 354.0 Date of Onset: 04/09/2024 Referring Provider: Traci Quinonez PA Insurance: [place] / [place] / Product Type: *No Product type* / Language: Pt. speaks belarusian as preferred language, however declines supervisor real estate office Medications: Current Outpatient Medications on File Prior [...] affected eye(s) 2 times daily. blood-glucose meter [facility] daily. buPROPion XL (WELLBUTRIN XL) 150 mg [...] mg tablet TAKE DIRECTED PER PACKAGE instructions miscellaneous medical supply [facility] by Other route daily. montelukast (SINGULAIR) 10 [...] for 28 days. 2 mL 0 [DISCONTINUED] tirzepatide, weight loss, (Zepbound) 5 mg/0.5 [...] raspberry. Precautions: None specified SUBJECTIVE Subjective Report: the pain is about a five Chart Reviewed: Yes Pain: 5 TREATMENT INTERVENTION Procedures: Modalities- U/S 50% 8 min, 0.8 for decreased pain for lat epi. Educated on use of massage ball for cross friction massage for decreased pain of lat epi. As well as use of ice for decreased pain. Pain Reassessment: 4 Assessment/Response To Treatment: Good Patient stated that she is using a wrist splint for neutral positioning at night. K tape applied toboth wrist and lat epi for decreased pain. Patient Education: Education provided: Yes Education Provided To: Patient utilizing Explanation mode(s) of education Response to Education: Good PLAN POC Development/Review: No Change in the Plan of Care; Participants: Patient Equipment Recommended: none; Equipment Provided: none Total Treatment Time: 30 TOTAL TREATMENT TIME: 30 Minutes Documentation completed by LYLA Zimmerman documented in this encounter Plan of Treatment Upcoming Encounters Date Type Department Care Team (Late st Contact Info) Description 05/09/2024 3:45 PM EST Treatment [facility] Occup[facility] [address] [phone] Og Kim COTA/L 05/15/2024 3:00 PM EST Treatment [facility] Occupational Therapy [address] [phone] Og Kim COTA/Maurilio 05/20/2024 10:30 AM EDT Treatment [facility] Outpatient [facility] [address] [phone] Kaitlyn Carranza, PT 05/21/2024 2:00 PM EDT Treatment [facility] Occupational Therapy [address] [phone] Dav Casas, OT 05/22/2024 11:00 AM EDT Treatment [facility] [address] [phone] Kaitlyn Carranza, PT 05/27/2024 11:00 AM EDT Treatment [facility] [address] [phone] Kaitlyn Carranza, PT 05/29/2024 11:00 AM EDT Treatment [facility] Outpatient [facility] [address] [phone] Kaitlyn Carranza, PT 06/17/2024 1:15 PM EDT Office Visit Orthopedic Surgery [facility] [address] [phone] Traci Quinonez PA [address] [phone] 08/06/2024 2:15 PM EDT Office Visit Bariatric Surgery [facility] 175 [facility] [address] [place] [phone] Jonas Sharma MD 175 [facility] [address] [place] [address] 09/30/2024 1:00 PM EDT Office Visit Orthopedic Surgery [facility] 250 175 [facility] [address] [place] [phone] Keith Light DPM [address] [phone] documented as of this encounter Goals Goal Patient Goal Type Associated Problems Recent Progress Patient-Stated? Author Pt goal General Yes Dva Casas, OT Note: Get better Get hand stronger STG 4-6 visits General No Dav Casas, OT Note: Patient will report <=2/10 pain in L elbow, Patient will demo L wrist AROM improved by 10* Patient will demo L project coordinator rn strength >= 10 to be able to [...] light IADLs , Patient will demo L project coordinator rn strength >= 20 to be able to [...] wrist documented in this encounter Care Teams Bushel Worker Relationship Specialty Start Date End Date Fredy Rdz MD [address] [place] [phone] PCP - General Internal Medicine 12/24/20 documented as of this encounter
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
--- OUTSIDE RECORDS SUMMARY | 2024-05-08 15:12 | XMS_ITS | Encounter Summary ---
Author Organization [facility] Address [address] [place] [address] Care Team Providers Care Bakeshop Cleaner Name Role Phone Fredy Rdz MD Primary Care Provider [phone] Encounter Details Date Type Department Care Team (Late st Contact Info) Description 04/15/2024 Plan of Care Documentation [facility] Occupational Therapy [address] [phone] Social History Tobacco Use Types Packs/Day Years [...] Notes * Dav Casas, OT - 04/15/2024 4:45 PM EST Images from the original note were not included. [facility] - Outpatient OCCUPATIONAL THERAPY EVALUATION Date: 04/15/2024 [...] Traci Quinonez PA Insurance: Pay[place] / Plan[place] / Product Type: *No Product type* / Language: Speaks and understands Algerian as preferred language with no framing mill operator required has a past medical history of Class 1 obesity due to excess calories with serious comorbidity and body mass index (BMI) of 34.0 to 34.9 in adult (10/16/2018), DM (diabetes mellitus) ([facility]/HCC), Fibromyalgia, HTN (hypertension), and Hyperlipidemia. has a [...] wrist 7/10 Home Environment: Lives with daughter FIRST AID DIRECTOR assist 4 hrs/day. meal cook assists with Adls, IADLs, rides Pt does not drive Prior Level of Function: Has assist for ADLs, IADLs OBJECTIVE General Observations/Comments: Pt able to manage personal items MOD I Cognition: Pt able to follow 2-3 step directions for OT eval Dominant Hand: R Behavioral Geneticist Right 52 pounds Left 5 pounds OT [...] new jar: 5 - Unable Do heavy metalizing machine operator automatic (eg wash laura, wash floors) : 4 [...] light IADLs , Patient will demo L mechanic foreman strength >= 20 to be able to [...] improved by 10* Patient will demo L mechanic foreman strength >= 10 to be able to [...] in Community Planned Therapy Interventions: Therapeutic Activity (34207), Therapeutic Exercise (81813), Ultrasound (45773), Manual Therapy (70631), and Iontophoresis (54372) Planned Therapy Duration: 12 visits BILLING (This [...] limitations, and/or participation restrictions Documentation completed by [facility]as [facility] [address] [place] [phone] Dept: [phone] Dept PATIENT NAME: Denise Harrison : 1965 [...] Info) Description 05/09/2024 3:45 PM EST Treatment [facility] Occupational Therapy [address] [place] [phone] Og Kim COTA/Maurilio 05/15/2024 3:00 PM EST Treatment [facility] Occupational Therapy [address] [place] [phone] Og Kim COTA/Maurilio 05/20/2024 10:30 AM EDT Treatment [facility] Outpatient Rehabilitation - [address] [phone] Kaitlyn Carranza PT 05/21/2024 2:00 PM EDT Treatment [facility] Occupational Therapy [address] [phone] Dav Casas, OT 05/22/2024 11:00 AM EDT Treatment [facility] [address] [phone] Tere Kaitlyn, PT 05/27/2024 11:00 AM EDT Treatment [facility] [address] [phone] Kaitlyn Carranza, PT 05/29/2024 11:00 AM EDT Treatment [facility] [address] [phone] Kaitlyn Carranza, PT 06/17/2024 1:15 PM EDT Office Visit Orthopedic [facility] [address] [phone] Traci Quinonez PA [address] [phone] 08/06/2024 2:15 PM EDT Office Visit Bariatric [facility] [address] [phone] Jonas Sharma MD [address] [address] 09/30/2024 1:00 PM EDT Office Visit Orthopedic [facility] 250 175 [facility] [address] [place] [phone] Keith Light DPM [address] [phone] documented as of this encounter Goals Goal Patient Goal Type Associated Problems Recent Progress Patient-Stated? Author Pt goal General Yes Dav Casas, OT Note: Get better Get hand stronger STG 4-6 visits General No Dav Casas, OT Note: Patient will report <=2/10 pain in L elbow, Patient will demo L wrist AROM improved by 10* Patient will demo L mechanic foreman strength >= 10 to be able to hold a cup, Patient will demo improved functional use of L upper extremity as evidenced by Quick Dash score <= 81 to be able to wipe the counters, and Patient will perform initial HEP MOD I LTG 12 visits Dav Low OT Note: Patient will report <=1/10 pain in L elbow, Patient will demo L wrist AROM WFL for basic ADLs, Patient will demo L elbow/wrist strength WFL for light IADLs , Patient will demo L mechanic foreman strength >= 20 to be able to pull pants to waist, Patient will demo improved functional use of L upper extremity as evidenced by Quick Dash score <= 50 to be able to wash dishes, and Patient will perform HEP MOD I documented as of this encounter Visit Diagnoses Not on filedocumented in this encounter Care Teams Bakeshop Cleaner Relationship Specialty Start Date End Date Fredy Rdz MD [address] [place] [phone] PCP - General Internal Medicine 12/24/20 documented as of this encounter
--- OUTSIDE RECORDS SUMMARY | 2024-05-08 15:13 | XMS_ITS | Clinical Summary ---
Author Organization [facility] Address [address] [place] [address] Care Team Providers Care Knitting Demonstrator Name Role Phone Fredy Rdz MD Primary Care Provider [phone] Source Comments PLEASE NOTE, if this patient is a minor, it may be UNLAWFUL to discuss sensitive information that is contained in these records (such as FAMILY PLANNING, MENTAL HEALTH or SUBSTANCE ABUSE) with the minor patient's parent or other person without the patient's specific authorization.[facility] Allergies Active Allergy Reactions Criticality Noted Date Comments Ascorbic Acid (Vitamin C) 04/29/[address] [facility]- Itchin in mouth and throat. Aspirin Itching,Swelling 04/28/2016 Per Pt-Throat Neck Swelling Carrot Hives,Rash High 04/29/2016 Per [facility]- Itching in face and Hands-Also pt allergic to Fresh Fruit and Vegatables. Ibuprofen Itching,Swelling 04/28/2016 Per Pt Pioglitazone 07/04/2017 Patient reports mediaction causes throat discomfort Medications clonazePAM (KLONOPIN) 0.5 mg tablet TAKE ONE TABLET BY MOUTH two(2) times a day ANXIETY OR insomnia 0 017 Active fluticasone (FLONASE) 50 mcg/actuation nasal sprayIndication s:Environmental allergies Place 1 [place] in both nostrils once daily 16 g 0 017 Active Miscellaneous Medical Supply miscIndications :Diabetes mellitus type 2 in obese by miscellaneous route once daily DX E11.65 Diabetic shoes to wear Daily- 1 pair 1 Each 017 Active OLANZapine (ZYPREXA) 10 mg tablet Take 10 mg by mouth nightly at bedtime 1 018 Active methocarbamol (ROBAXIN) 750 mg tabletIndicatio ns:Midline low back pain without sciatica, unspecified chronicity Take 1 Tab by mouth 3 (three) times daily 60 Tab 018 Active VITAMIN D2 50,000 unit capsule TAKE ONE CAPSULE BY MOUTH EACH WEEK FOR 8 DOSES 0 018 Active FLUoxetine (PROZAC) 40 mg capsule Take 80 mg by mouth every morning Active doxepin (SINEQUAN) 10 mg capsule TAKE ONE CAPSULE BY MOUTH DAILY AT BEDTIME FOR SLEEP Active hydrOXYzine pamoate (VISTARIL) 25 mg capsule TAKE 1 TO 2 CAPSULES BY MOUTH 2 (two) times a day NEEDED Active cyclobenzaprine (FLEXERIL) 10 mg tabletIndicatio ns:Muscle spasms of neck Take 1 Tablet by mouth 3 (three) times daily as needed for muscle spasms 60 Tablet 021 Active azelastine (OPTIVAR) 0.05 % ophthalmic solutionIndicat ions:Allergic conjunctivitis, unspecified laterality Place 1 Drop into both eyes 2 (two) times daily 6 mL 1 021 Active blood-glucose meter monitoring kitIndications: Diabetes mellitus type 2 in obese once daily E11.69 Check daily 1 Each 021 Active carBAMazepine (TEGRETOL) 200 mg tablet 200 mg 2 (two) times daily 021 Active SUMAtriptan succinate (IMITREX) 100 mg tablet every 2 to 4 (two to four) hours as needed 021 Active docusate sodium (COLACE) 100 mg capsuleIndicati ons:Other constipation Take 1 Capsule by mouth 2 (two) times daily 60 Capsule 2 022 Active buPROPion XL (WELLBUTRIN XL) 150 mg 24 hr tablet Take 150 mg by mouth once daily TAKE 1 TABLET BY MOUTH ONCE DAILY Authorized by: SHI BARGER 023 Active lancets (INJECT EASE LANCETS) 28 gaugeIndication s:Diabetes mellitus type 2 in obese USE TO TEST FINGER STICK BLOOD SUGAR ONCE DAILY 100 Each 5 024 Active alcohol swabsIndication s:Type 2 diabetes mellitus without complication, without long-term current use of insulin ([facility]) Use BID when checking BG and administering Ozempic. 100 Each 5 024 Active atorvastatin (LIPITOR) 20 mg tabletIndicatio ns:Dyslipidemia Take 1 Tablet by mouth once daily 90 Tablet 1 024 Active chlorthalidone (HYGROTEN) 25 mg tabletIndicatio ns:Essential hypertension Take 1 Tablet by mouth once daily 90 Tablet 3 024 Active loratadine (CLARITIN) 10 mg tabletIndicatio ns:Environmenta l allergies Take 1 Tablet by mouth once daily 90 Tablet 1 024 Active metFORMIN XR (GLUCOPHAGE-XR) 500 mg 24 hr tabletIndicatio ns:Type 2 diabetes mellitus without complication, without long-term current use of insulin ([facility]) TAKE 1 TABLET BY MOUTH two (2) times a day WITH A MEAL 180 Tablet 1 Active propranoloL (INDERAL) 20 mg tabletIndicatio ns:Essential hypertension Take 1 Tablet by mouth once daily 90 Tablet 2 024 Active sertraline (ZOLOFT) 100 mg tablet Take 100 mg by mouth once daily TAKE 1 TABLET BY MOUTH ONCE DAILY Authorized by: SHI BARGER 024 Active blood sugar diagnostic (FREESTYLE LITE STRIPS) stripsIndicatio ns:Type 2 diabetes mellitus with obesity ([facility]) USE TO TEST FINGER STICK BLOOD SUGAR ONCE DAILY 100 Each 11 024 Active polyethylene glycol, PEG, 3350 (GLYCOLAX) 17 gram/dose powderIndicatio ns:Other constipation DISSOLVE 17 gramos IN WATER AND TAKE ONCE DAILY 510 g 3 Active semaglutide, weight loss, (WEGOVY) 0.5 mg/0.5 mL pnij Inject 0.5 mg into the skin once a week 2 mL 024 Active montelukast (SINGULAIR) 10 mg tabletIndicatio ns:Multiple allergies TAKE 1 TABLET BY MOUTH ONCE DAILY 90 Tablet 1 024 Active omeprazole (PRILOSEC) [address] capsuleIndicati ons:Gastroesoph ageal reflux disease Take 1 Capsule by mouth every morning before breakfast 60 Capsule 3 025 Active lisinopriL 5 mg tabletIndicatio ns:Essential hypertension TAKE 1 TABLET BY MOUTH ONCE DAILY 90 Tablet 1 025 Active gabapentin (NEURONTIN) 800 mg tabletIndicatio ns:Chronic midline low back pain without sciatica TAKE 1 TABLET BY MOUTH 3 (THREE) TIMES A DAY 90 Tablet 3 025 Active gabapentin (NEURONTIN) 800 mg tabletIndicatio ns:Chronic midline low back pain without sciatica Take 1 Tablet by mouth 3 (three) times daily 90 Tablet 3 024 2024 Discontinued Active Problems Problem Noted Date Diagnosed Date History of cholecystectomy 06/15/2022 History of sleeve gastrectomy 03/01/2022 Overview (03/01/2022): Sleeve Gastrectomy 2018 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 CT head normal from [facility] per Neuro notes. On flexeril and received Botox injection Other hyperlipidemia 04/30/2020 Chronic midline low back pain without sciatica 1 04/22/2019 Overview (02/20/2020): Referral to [facility] Elevated liver enzymes 08/03/2018 Overview (06/15/2022): U/S of liver- 06/10/22 Fatty Infiltration , hepatomegaly Fibromyalgia 01/25/2018 Myopia of right eye 07/29/2016 Overview (07/29/2016): Per [facility] on 07/12/2016 Regular astigmatism of both eyes 07/29/2016 Overview (07/29/2016): Per [facility] on 07/12/2016 Presbyopia 07/29/2016 Overview (07/29/2016): Per [facility] on 07/12/2016 Pinguecula of right eye 07/29/2016 Overview (07/29/2016): Per [facility] on 07/12/2016 Stationary peripheral pterygium of left eye 07/11 Overview (07/29/2016): Per [facility] on 07/12/2016 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 Overview (07/29/2016): Per [facility] on 07/12/2016 Diabetes mellitus type 2 in obese 04/29/2016 HONORIO (obstructive sleep apnea) 04/29/2016 Essential hypertension 04/29/2016 Encounters Date Type Department Care Team Description 03/15/2024 10:40 AM EST Office Visit [facility] [address] [place] [id number] Fredy Rdz MD Rodriguez, Anabel Gastroesophageal reflux disease (Primary Dx); Essential hypertension; Other hyperlipidemia; Controlled type 2 diabetes mellitus without complication, without long-term current use of insulin ([facility]) 03/15/2024 Travel from Last 3 Months Immunizations Name Administration Dates Next Due Flu, Preservative Free 11/17/2022,2020,04/12/2019,12/07 Flu, Recombinant, 18y+, Flublok 12/14/2019 Hep B, Adult/Adol (ENERGIX/RECOMBIVAX) 3,05/15/2012,04/12/2012 Hep B,adult,adjuvanted (HEPLISAV) 08/12/2022 INFLUENZA, SEASONAL, INJECTABLE 12/21/19 16,01/02/2015,01/01/2014,11/19,04/12/2012,11/17/2011,02/23/2011 ,01/22/2010 Influenza (FLUBLOK),recombinant,injectable,prese rvative Free 01/08/2024 Moderna COVID-19 Vaccine, re d cap blue label, 12+ Primary Series 03/03/2021,09/01/2020,08/04/2020 PNEUMOCOCCAL CONJUGATE PCV 2 0 (Prevnar) 09/08/2023 PNEUMOCOCCAL POLYSACCHARIDE PPV23 06/01/2022,08/2009 TDAP 08/08/2020,09/15/2009 ZOSTER VACCINE, RECOMBINANT (SHINGRIX) 3,05/06/2021 Family History Medical History Relation Name Comments Hypertension Brother Asthma Father Heart Problems Father Bleeding/Blood Disorder Mother asha ann clot - at age 65 Diabetes Mother High Cholesterol Mother Hypertension Sister 1 Heart Problems Sister 2 Relation Name Status Comments Brother Father Mother Sister 1 Sister 2 Social History Tobacco Use Types Packs/Day Years Used Date Smoking Tobacco: Never Passive Smoke Exposure: Never Smokeless Tobacco: Never Alcohol Use Standard Drinks/Week Comments Not Currently 0 (1 standard drink = 0.6 oz pur e alcohol) Social Connections Answer Date Recorded Connectedness 0 01/09/2023 Financial Resource Strain Answer Date R ecorded Financial Resource Strain 0 2022 Stress Answer Date Recorded Stress 0 01/09/2023 Physical Activity Answer Date Recorded Physical Activity 0 10/29/2018 Food Insecurity Answer Date Recorded Food 0 01/09/2023 Transportation Needs Answer Date Record ed Transportation 0 01/09/2023 Housing Stability Answer Date Recorded Housing 0 01/09/2023 Safety and Environment Answer Date [place] rded Safety 0 01/09/2023 Utilities Answer Date Recorded Utilities 0 01/09/2023 Employment Answer Date Recorded Stress 0 01/09/2023 Comments No Sex and Gender Information Value Date Recorded Sex Assigned at Female 12/20/2016 10:10 AM PDT Legal Sex Female 10:29 AM PDT Gender Identity Female 12/20/2016 10:10 AM PDT Sexual Orientation Straight 12/20/2016 10 :10 AM PDT Last Filed Vital Signs Vital Sign Reading Time Taken Comments Blood Pressure 122/76 03/15/2024 10:24 AM EST Pulse 82 03/15/2024 10:24 AM EST Temperature 36.8 ??C (98.3 ??F) 03/15/2024 10:[address] Respiratory Rate 16 03/15/2024 10:24 AM EST Oxygen Saturation 96% 03/15/2024 10:24 AM EST Inhaled Oxygen Concentration - - Weight 88.5 kg (195 lb) 03/15/2024 10:24 AM EST Height 165.1 cm (5' 5 ) 03/15/2024 10:24 AM EST Body Mass Index 32.45 03/15/2024 10:24 AM EST Plan of Treatment Upcoming Encounters Date Type Department Care Team (Late st Contact Info) Description 05/15/2024 9:20 AM EST Office Visit [address] [phone] Fredy Rdz MD [address] [facility] [place], [place] [id number] Sis Stevens [address] [place] [id number] 05/29/2024 10:40 AM EDT Office Visit [address] [phone] Fredy Rdz MD [address] [facility] [place], [place] [id number] Health Maintenance Due Date Last Done Comments Dental Examination [address] CT Colonography 07/20/2011 Fecal DNA 07/20/2011 Flexible Sigmoidoscopy 07/20/2011 FIT/gFOBT 06/05/2019 06/04/2018 HPV Screening 12/05/2022 12/05/2017 Diabetes HbA1c 03/20/2024 09/18/2023, 07/0 10/2023, 09/18/2023, Additional history exists Diabetes Microalbumin (w/Creatinine) 05/31/2024 06/01/2023, 02/19/2021, 05/07/2018, Additional history exists Pap Smear 06/30/2024 06/30/2021, 04/2 , 12/05/2017, Additional history exists Retinopathy Screening 07/02/2024 07/03/2023 , 04/01/2022, 05/10/2021 (Managed by Outside Provider), Additional history exists Breast Cancer Screening (Mammogram) 07/30/2024 07/31/2023, 07/31/2023, 07/29/2022, Additional history exists Annual Preventive Care Visit 09/07/2024, 06/01/2022, 05/04/2018 Diabetes Foot Exam 09/07/2024 09/08/2023, 0 08/12/2022, 07/30/2020 Tobacco Screening 09/07/2024 09/08/2023 Lipid Screening 09/17/2024 09/18/2023, 10/2023, 06/01/2022, Additional history exists Serum Creatinine 09/17/2024 09/18/2023, , 11/12/2021, Additional history exists Cervical Cancer Screening 06/30/2026 Pap + HPV 06/30/2026 06/30/2021, 06/12, 06/30/2021, Additional history exists Colonoscopy 09/10/2029 09/11/2019, 09/11/2019 Colorectal Cancer Screening 09/10/2029 Imm-DTaP/Tdap/Td (3 - Td or Tdap) 08/08/2030 021, 09/15/2009 HIV Screening Completed 05/07/2018 [id number] Discontinued 03/03/2021, 08/12, 08/04/2020 Imm-Zoster, Recombinant Completed 06/01/2022, 05/06 Hepatitis C Screening Completed 06/08/2022, 021 Imm-Hepatitis B Completed 08/12/2022, 09/11, 05/15/2012, Additional history exists Imm-Pneumococcal Completed 09/08/2023, , 09/15/2009 Imm-Influenza Completed 01/08/2024, 09/2022, 01/27/2021, Additional history exists Alcohol and Drug Screen Completed 03/15/19 25, 06/01/2023, 06/01/2022, Additional history exists Depression Annual Screen Completed 025, 06/01/2023, 09/06/2017 (Managed by Outside Provider), Additional history exists Cervical Ablation/Cold-Knife Conization Discontinued Cervical Cryotherapy Discontinued Colposcopy Discontinued Endometrial Biopsy Discontinued Excision/Leep Discontinued HPV Genotyping Discontinued Vaginal Pap Discontinued Vulvoscopy Discontinued Procedures Procedure Name Priority Date/Time Associated Diagnosis Comments IMAGING SCANNED DOCUMENT 05/03/2024 3:00 AM EST COMPREHENSIVE METABOLIC PANEL Routine 09/18/2023 8:49 AM EDT Routine general medical examination at a health care facility Dyslipidemia Essential hypertension Type 2 diabetes mellitus without complication, without long-term current use of insulin ([facility]) Class 1 obesity due to excess calories with serious comorbidity and body mass index (BMI) of 34.0 to 34.9 in adult LIPID PANEL Routine 09/18/2023 8:49 AM EDT Routine general medical examination at a health care facility Dyslipidemia Essential hypertension Type 2 diabetes mellitus without complication, without long-term current use of insulin ([facility]) Class 1 obesity due to excess calories with serious comorbidity and body mass index (BMI) of 34.0 to 34.9 in adult HEMOGLOBIN GLYCOSYLATED A1C Routine 09/18/2023 8:49 AM EDT Routine general medical examination at a health care facility HISTORIC MAMMOGRAM 07/31/2023 3: 00 AM EDT REFERRAL TO DIABETIC RETINAL EXAM Routine 07/03/2023 3:00 AM EDT Diabetes mellitus type 2 in obese MICROALBUMIN/CREATININ E RATIO, URINE, RANDOM Routine 06/01/2023 1:35 PM EDT Diabetes mellitus type 2 in obese HEPATITIS C AB W/RFLX HCV RNA, QT, RT PCR Routine 06/08/2022 11:01 AM EDT Elevated liver enzymes PAP W/ HPV 06/30/2021 3:00 AM EDT COLONOSCOPY Routine 09/11/2019 FECAL OCCULT BLOOD HEMOCCULT X3, BEV ZENA (POCT) Routine 06/04/2018 10:39 AM EDT Health care maintenance ANTIBODY HIV-1&HIV-2 SINGLE RESULT Routine 05/07/2018 10:17 AM EST Health care maintenance PAP SMEAR W/HPV, ABSTRACTED Routine 12/05/2017 from Last 3 Months or Most Recently Relevant to Health Maintenance Results * IMAGING SCANNED DOCUMENT (05/03/2024 3:00 AM EST) 05/03/2024 3:00 AM EST us Fredy Rdz MD SCAN IMAGING Final Result * (ABNORMAL) HEMOGLOBIN GLYCOSYLATED A1C (09/18/2023 8:49 AM EDT) Pathologist [facility] HEMOGLOBIN A1C 6.5(H) <5.7 % of total Hgb [facility] Comment: For someone without known diabetes, a hemoglobin A1c value of 6.5% or greater indicates that they may have diabetes and this should be confirmed with a follow-up test. For someone with known diabetes, a value <7% indicates that their diabetes is well controlled and a value greater than or equal to 7% indicates suboptimal control. A1c targets should be individualized based on duration of diabetes, age, comorbid conditions, and other considerations. Currently, no consensus exists regarding use of hemoglobin A1c for diagnosis of diabetes for children. ?? Blood Blood / Unknown 09/18/2023 8 :49 AM EDT 09/18/2023 8:50 AM EDT Narrative [facility] - 09/19/2023 3:54 AM EDT FASTING:YES Fredy Rdz MD LAB - BLOOD DRAW Final Result [facility] [address] [place] [id number], [facility] [address] [place] [phone] * (ABNORMAL) LIPID PANEL (09/18/2023 8:49 AM EDT) [facility] CHOLESTEROL, TOTAL 162 <200 mg/dL [facility] HDL CHOLESTEROL 48(L) > OR = 50 mg/dL [facility] TRIGLYCERIDES 186(H) <150 mg/dL [facility] LDL-CHOLESTEROL 86 99 mg/dL (calc) [facility] Comment: Reference range: <100 Desirable range <100 mg/dL for primary prevention; ?? <70 mg/dL for patients with CHD or diabetic patients with > or = 2 CHD risk factors. LDL-C is now calculated using the Pearl calculation, which is a validated novel method providing better accuracy than the Friedewald equation in the estimation of LDL-C. Travis RAMIREZ et al. TAIWO. 2013;310(19): 6801-5463 (http://education.Kik.StayClassy/faq/LOZ473) CHOL/HDLC RATIO 3.4 <5.0 (calc) [facility] NON-HDL CHOLESTEROL 114 <130 mg/dL (calc) [facility] Comment: For patients with diabetes plus 1 major ASCVD risk factor, treating to a non-HDL-C goal of <100 mg/dL (LDL-C of <70 mg/dL) is considered a therapeutic option. Blood Blood / Unknown 09/18/2023 8 :49 AM EDT 09/18/2023 8:50 AM EDT Narrative [facility] - 09/19/2023 3:54 AM EDT FASTING:YES Fredy Rdz MD LAB - BLOOD DRAW Final Result [facility] [address] [address], [facility] [address] [place] [address] * (ABNORMAL) COMPREHENSIVE METABOLIC PANEL (09/18/2023 8:49 AM EDT) GLUCOSE 121(H) 65 - 99 mg/dL [facility] Comment: ?Fasting reference interval For someone without known diabetes, a glucose value between 100 and 125 mg/dL is consistent with prediabetes and should be confirmed with a follow-up test. UREA NITROGEN (BUN) 22 7 - 25 mg/dL [facility] CREATININE (blood) 0.84 0.50 - 1.03 mg/dL [facility] EGFR 81 > OR = 60 mL/min/1. 73m2 [facility] BUN/CREATININE RATIO SEE NOTE: [facility] Comment: ?? Not Reported: BUN and Creatinine are within ?? reference range. ? SODIUM 138 135 - 146 mmol/L [facility] POTASSIUM 3.7 3.5 - 5.3 mmol/L [facility] CHLORIDE 97(L) 98 - 110 mmol/L [facility] CARBON DIOXIDE 31 20 - 32 mmol/L [facility] CALCIUM 10.0 8.6 - 10.4 mg/dL [facility] PROTEIN, TOTAL 6.8 6.1 - 8.1 g/dL [facility] ALBUMIN 4.2 3.6 - 5.1 g/dL [facility] GLOBULIN 2.6 1.9 - 3.7 g/dL (calc) [facility] ALBUMIN/GLOBULI N RATIO 1.6 1.0 - 2.5 (calc) [facility] BILIRUBIN, TOTAL 1.0 0.2 - 1.2 mg/dL [email or web address] ALKALINE PHOSPHATASE 58 37 - 153 U/L [facility] AST 23 10 - 35 U/L [email or web address] ALT 31(H) 6 - 29 U/L [facility] Blood Blood / Unknown 09/18/2023 8 :49 AM EDT 09/18/2023 8:50 AM EDT Narrative [email or web address] - 09/19/2023 3:54 AM EDT FASTING:YES us Fredy Rzd MD LAB - BLOOD DRAW Edited Result - Final [email or web address] [address] [address], [email or web address] [address] [address] * HISTORIC MAMMOGRAM (07/31/2023 3:00 AM EDT) 07/31/2023 3:00 AM EDT us Fredy Rdz MD IMG MAMMO Final Result * REFERRAL TO DIABETIC RETINAL EXAM (07/03/2023 3:00 AM EDT) 07/03/2023 3:00 AM EDT us Fredy Rdz MD REFERRAL Edited Result - Final * MICROALBUMIN/CREATININE RATIO, URINE, RANDOM (06/01/2023 1:35 PM EDT) CREATININE, RANDOM URINE 24 20 - 275 mg/dL [email or web address] MICROALBUMIN 0.6 mg/dL [facility] Comment: Reference Range Not established MICROALBUMIN/CREA TININE RATIO, RANDOM URINE 25 <30 mg/g creat [facility] Comment: The ADA defines abnormalities in albumin excretion as follows: Albuminuria Category ?Result (mg/g creatinine) Normal to Mildly increased ?? <30 Moderately increased ? 30-299 Severely increased ? > OR = 300 The ADA recommends that at least two of three specimens collected within a 3-6 month period be abnormal before considering a patient to be within a diagnostic category. Urine Urine specimen / Unknown 06/01/2023 1:35 PM EDT 06/01/2023 1:35 PM EDT us Fredy Rdz MD LAB - NO BLOOD DRAW Final Resul t Performing Organization Address [facility] Co de Phone Number [employer] [address] [address], [facility] [address] [address] * HEPATITIS C AB W/RFLX HCV RNA, QT, RT PCR (06/08/2022 11:01 AM EDT) HEPATITIS C ANTIBODY NON-REACT ADELIA NON-REACT ADELIA [employer] SIGNAL TO CUT-OFF 0.14 <1.00 [facility] Comment: HCV antibody was non-reactive. There is no laboratory evidence of HCV infection. In most cases, no further action is required. However, if recent HCV exposure is suspected, a test for HCV RNA (test code 48036) is suggested. For additional information please refer to http://education.GroundWork/faq/VKW70l1 (This link is being provided for informational/ educational purposes only.) Blood Blood / Unknown 06/08/2022 1 1:01 AM EDT 06/08/2022 11:02 AM EDT us Fredy Rdz MD LAB - BLOOD DRAW Final Result Performing Organization Address [facility] Co de Phone Number [email or web address] [address] [address], [facility] [address] [address] * PAP W/ HPV (06/30/2021 3:00 AM EDT) 06/30/2021 3:00 AM EDT Fredy Rdz MD LAB - NO BLOOD DRAW Final Resul t * COLONOSCOPY (09/11/2019) Provider [facility] PROCEDURES Final Result Performing Organization Address City/[facility]/ZIP Co de Phone Number [facility] [address] [place] [address], [place] * FECAL OCCULT BLOOD HEMOCCULT X3, BEV ZENA (POCT) (06/04/2018 10:39 AM EDT) FECAL OCCULT BLOOD NEGATIVE NEGATIVE [facility] PO[facility] FECAL OCCULT BLOOD #2 NEGATIVE NEGATIVE [facility] FECAL OCCULT BLOOD #3 NEGATIVE NEGATIVE [facility] Stool specimen (specimen) Stool specimen / Unknown 06/04/2018 10:39 AM EDT Fredy Rdz MD LAB - BLOOD DRAW Final Result Performing Organization Address City/[facility]/ZIP Co de Phone Number [facility] * HIV-1 & HIV-2 ANTIBODIES (05/07/2018 10:17 AM EST) HIV 1 AND 2 ANTIBODY SCREEN NEGATIVE NEGATIVE [facility] [employer] [facility] Comment: This assay is a 4th generation assay allowing for earlier detection of HIV infection by detecting the presence of the HIV-1 p24 antigen as well as the traditional antibodies to HIV type 1 (including group O) and type 2. ??Use of a 4th generation assay is the current CDC recommendation for HIV screening. Blood specimen (specimen) Blood / Unknown 05/07/2018 10:17 AM EST 05/07/2018 10:20 AM EST Narrative [facility] - 05/07/2018 12:37 PM EST [employer], a member of [address] [address] Media Consultant - Anastasia Swain [place] [id number] ORD# [id number] us Fredy Rdz MD LAB - BLOOD DRAW Final Result [facility] [address] [place] [address], * PAP SMEAR W/HPV (12/05/2017) PAP SMEAR INTERPRETATION NORMAL NORMAL [facility] HPV (HUMAN PAPILLOMA) NEGATIVE NEGATIVE [facility] HPV TYPE 16 NEGATIVE NEGATIVE [facility] HPV TYPE 18 NEGATIVE NEGATIVE [facility] 12/05/2017 [employer] [facility] - 12/05/2017 10:21 AM EDT ThinPrep Pap, Imaged: Negative for Squamous Intraepithelial Lesion and Malignancy HPV Negative us Provider [facility] LAB - NO BLOOD DRAW Final Result Performing Organization Address City/[facility] Co de Phone Number [facility] [address] [place] [address], from Last 3 Months or Most Recently Relevant to Health Maintenance Insurance [employer] [address] [employer] Care Teams Knitting Demonstrator Relationship Specialty Start Date End Date Fredy Rdz MD [address] [place] [address] PCP - General Internal Medicine 04/12/19
--- OUTSIDE RECORDS SUMMARY | 2024-05-08 15:13 | XMS_ITS | Encounter Summary ---
Author Organization [facility] Address [address] [place] [address] Care Team Providers Care Sales Representative Consultant Name Role Phone Fredy Rdz MD Primary Care Provider [phone] Reason for Visit * Reason Comments Fall Slip and fall Encounter Details Date Type Department Care Team (Late st Contact Info) Description 05/03/2024 12:09 PM EST - 05/03/2024 6:24 PM EST Emergency [facility] Emergency [address] [place] [address] Fall, initial encounter (Primary Dx); Contusion of left knee, initial encounter; Right shoulder strain, initial encounter Discharge Disposition: Home or Self Care Social History Tobacco Use Types Packs/Day Years [...] on file documented as of this encounter Last Filed Vital Signs Vital Sign Reading [...] Mass Index 34.19 05/03/2024 9:47 AM EST documented in this encounter Discharge Instructions * Discharge Instructions* KOKO Magaña - 05/03/2024 12:59 PM EST I am discharging you home with Tylenol and methocarbamol to take for ongoing management of your discomfort. Please follow-up with your primary care physician within 1 week for a reevaluation of this injury. Follow up with your primary provider. Call tomorrow for appointment. Return to Emergency Department if symptoms worsen, do not improve, or any other concern. Get well soon! Thank you for coming to the [facility] Emergency Department today. Our entire team works together to provide you with the best care possible. Examination and treatment you received in the emergency department has been rendered on an EMERGENCY basis only. It is not intended to be a substitute for or an effort to provide complete medical care. You should follow-up with your primary care provider. Please report to your physician any new or remaining problems, because it is impossible to recognize and treat all elements of injury or illness in a single emergency department visit. In the event that you're unable to obtain a followup appointment in a timely fashion, OR you are not getting any better, OR you are getting worse, OR you develop any symptoms of concern, please return here immediately for further evaluation. The emergency department is open 24 hours a day, 7 days aweek. Your discharge report is based on information that was available when you were in the emergency department. If you do not have a primary care provider, please contact one of the following to make arrangements to follow up. Latrice [place] Latrice [place] Latrice Santizo Latrice Arriaga * Attachments The following attachments cannot be sent through Care Everywhere. * Contusion (Pashto) documented in this encounter Medications at Time of Discharge acetaminophen (TYLENOL) 500 mg tablet Take 2 tablets (1,000 mg total) by mouth every 6 (six) hours if needed for mild pain for up to 10 days. 30 tablet 05/03/2024 5 alcohol swabs pads, medicated 1 (one) time. USE two (2) times a day AND FOR INJECT ozempic atorvastatin (LIPITOR) 20 mg tablet Take 1 tablet (20 mg total) by mouth 1 (one) time each day. azelastine (OPTIVAR) 0.05 % ophthalmic solution Administer 1 drop into affected eye(s) 2 times daily. 07/30/2020 blood-glucose meter misc daily. 11/06/2020 buPROPion XL (WELLBUTRIN XL) 150 mg 24 hr tablet Take 1 Tablet by mouth daily calcium citrate-vitamin D3 250 mg-5 mcg (200 unit) tablet 1 tablet. 08/15/2019 carBAMazepine (TEGretol) 200 mg tablet TAKE 1 [...] by mouth 3 times daily as needed. 04/30/2020 diclofenac (Voltaren Arthritis Pain) 1 % topical gel Apply 4 g topically 2 (two) times a day. 240 g 1 04/02/2024 5 docusate sodium (COLACE) 100 mg capsule Take 1 capsule (100 mg total) by mouth 2 times daily. 06/09/2021 doxepin (SINEquan) 10 mg capsule TAKE ONE CAPSULE BY MOUTH DAILY AT BEDTIME FOR SLEEP 07/06/2019 ergocalciferol (VITAMIN D-2) 1,250 mcg (50,000 unit) capsule TAKE ONE CAPSULE BY MOUTH EACH WEEK FOR 8 DOSES 02/28/2018 FLUoxetine (PROzac) 20 mg capsule Take 1 capsule (20 mg total) by mouth. FLUTICASONE PROPION-SALMETER OL INHL Inhale into the lungs. fluticasone propionate (FLONASE) 50 mcg/actuation nasal spray Administer 1 spray into affected nostril(s) daily. 07/11/2016 gabapentin (NEURONTIN) 800 mg tablet Take 1 [...] MOUTH two (2) times a day NEEDED 02/08/2020 Inject Ease Lancets 28 gauge lancets USE TO TEST FINGER STICK BLOOD SUGAR ONCE DAILY lisinopriL (PRINIVIL,ZESTRI L) 5 mg tablet Take 1 tablet (5 mg total) by mouth 1 (one) time each day. loratadine 10 mg capsule Take 1 Tablet by mouth daily metFORMIN XR (GLUCOPHAGE-XR) 500 mg 24 hr tablet TAKE 1 TABLET two (2) times a day WITH A MEAL 09/08/2023 methocarbamoL (ROBAXIN) 750 mg tablet Take 1 tablet (750 mg total) by mouth 4 (four) times a day for 7 days. 28 each 05/03/2024 5 methylPREDNISolo ne (MEDROL DOSPAK) 4 mg tablet TAKE DIRECTED PER PACKAGE instructions [facility] Other route daily. 11/24/2016 montelukast (SINGULAIR) 10 mg tablet Take 1 tablet (10 mg total) by mouth at bedtime. OLANZapine (ZyPREXA) 10 mg tablet Take 1 tablet (10 mg total) by mouth. 05/23/2017 omeprazole (PriLOSEC) [address] capsule Take 1 capsule (20 mg total) by mouth 1 (one) time each day. polyethylene glycol (PEG) 17 gram/dose oral powder DISSOLVE 17 gramos IN WATER AND TAKE ONCE DAILY 12/01/2023 propranoloL (INDERAL) 20 mg tablet Take 1 tablet (20 mg total) by mouth 1 (one) time each day. sertraline (ZOLOFT) 100 mg tablet Take 1 tablet (100 mg total) by mouth 1 (one) time each day. sucralfate (CARAFATE) 100 mg/mL suspension Take 10 mL (1 g total) by mouth. 02/08/2022 SUMAtriptan (IMITREX) 100 mg tablet TAKE 1 TABLET BY MOUTH NEEDED for migraine. TAKE 1 TAB AT onset REPEAT IN 2 HOUR NEEDED . maximum 2 TAB ONCE DAILY tirzepatide, weight loss, (Zepbound) 7.5 mg/0.5 mL injection Inject 0.5 mL (7.5 mg total) under the skin every 7 (seven) days for 28 days. 2 mL 05/01/2024 5 documented as of this encounter Ordered Prescriptions Prescription Sig Dispense Quantity Refills Last Filled Start Date End Date methocarbamoL (ROBAXIN) 750 mg tablet Take 1 tablet (750 mg total) by mouth 4 (four) times a day for 7 days. 28 each 05/03/2024 acetaminophen (TYLENOL) 500 mg tablet Take 2 tablets (1,000 mg total) by mouth every 6 (six) hours if needed for mild pain for up to 10 days. 30 tablet 05/03/2024 5 documented in this encounter Discharge Disposition Disposition Code Departure Means Destination Comment s Home or Self Care documented in this encounter Progress Notes * Shellie Jones RN - 05/03/2024 9:44 AM EST C/o slip and fall today on ice. Fell to knees denies hitting head or loc. Now c/o left knee pain. Pmh: dm, htn, dep, anx * KOKO Magaña - 05/03/2024 9:40 AM EST Emergency Medicine Note Patient Name: Denise Harrison Initial Evaluation: 05/03/2024 : 1965 Patient's PCP: Fredy Rdz MD Emergency Physician: KOKO Magaña History of Present Illness Chief Complaint: Chief Complaint Patient presents with Fall Slip and fall This is a 58-year-old female with a past medical history of fibromyalgia, hxb-uaducql-pfvxkczrm diabetes, neuropathic injury causing right facial droop that was treated with Botox, cholecystectomy and gastroesophageal reflux disease presenting for evaluation of left knee pain and right shoulder pain. The patient states she was entering the office of the [facility] on [address] to see her physician when she slipped on ice and fell forward onto her left knee and hands. Patient denies any head injury or loss of consciousness as a result of this fall. Patient states that she had pain when attempting to stand up and the physician at the facility encouraged her to come to the emergency department for further evaluation. Patient states that she was feeling well prior to this fall. Patient has not taken any medication for her discomfort. missile pad mechanic used: Yes (Pashto) ROS: I have performed a ROS with the pertinent positives and negatives documented in the history ofpresent illness. Previous History Past Medical History: Diagnosis Date Class 1 obesity due to excess calories with serious comorbidity and body mass index (BMI) of 34.0 to 34.9 in adult 10/16/2018 DX:Class 1 obesity due to excess calories with serious comorbidity and body mass index (BMI) of 34.0 to 34.9 in adult DM (diabetes mellitus) ([facility]) DX:DM (diabetes mellitus) ([facility]) Fibromyalgia DX:Fibromyalgia HTN (hypertension) DX:HTN (hypertension) Hyperlipidemia DX:Hyperlipidemia Past Surgical History: Procedure Laterality Date CHOLECYSTECTOMY PROCEDURE: NC LAPAROSCOPY SURG CHOLECYSTECTOMY OTHER SURGICAL HISTORY PROCEDURE: NC LAPS GASTRIC RESTRICTIVE PROCEDURE PLACE DEVICE Social History Tobacco Use Smoking status: Never Smokeless tobacco: Never Substance Use Topics Alcohol use: No Drug use: No No family history on file. is allergic to carrot, carrot juice, apple, ascorbic acid, ascorbic acid (vitamin c), aspirin, oxycodone, pioglitazone, and raspberry. No current facility-administered medications on file prior to encounter. Current Outpatient Medications on File Prior to Encounter Medication Sig Dispense Refill alcohol swabs pads, [...] (2) times a day WITH A MEAL methylPREDNISolone (MEDROL DOSPAK) 4 mg tablet TAKE DIRECTED PER PACKAGE instructions miscellaneous medical supply mis by Other route daily. montelukast (SINGULAIR) 10 [...] days for 28 days. 2 mL 0 Physical Exam ED Triage Vitals [05/03/24 0947] Temp Heart Rate Resp BP 36.7 ??C (98.1 ??F) 74 18 (!) 147/80 SpO2 Temp Source Heart Rate Source Patient Position 100 % Oral Apical Sitting BP Location FiO2 (%) Right arm -- Physical Exam General: awake, calm, cooperative, no apparent distress, vital signs reviewed Skin: warm, dry, mild superficial abrasion overlying left patella, no erythema, ecchymosis or retained foreign body noted Eyes: EOMI, no photophobia, no nystagmus, mild droop right eye Neck: soft/supple, full range of motion, no nuchal rigidity, no midline tenderness Musculoskeletal: patient able to move all four extremities, passive ROM left knee intact with mild discomfort to palpation of the left patella, no pain to palpation of the right clavicle, mild pain to palpation of the right anterior shoulder with intact ROM right shoulder winemaker strength equal bilaterally Neurological: alert and oriented X3, no focal deficit Psychiatric: stable mood and affect, fluid speech, good eye contact and appropriate demeanor Results Labs Reviewed - No data to display Abnormal Labs Reviewed - No data to display XR Knee 4+ Views Left Final Result Normal examination. Code 44424 -------- FINAL REPORT -------- Dictated By: Sergio Martinez Dictated Date: 05/03/2024 10:07 ET Assigned Physician: Sergio Martinez Reviewed and Electronically Signed By: Sergio Martinez Signed Date: 05/03/2024 10:08 ET Workstation ID: [id number] Transcribed By: Self Edit Transcribed Date: 05/03/2024 10:07 ET I have discussed the incidental/abnormal imaging and/or lab abnormalities with the patient and haveinstructed them the need for further evaluation and workup with their primary care doctor. The laboratory results, imaging results and other diagnostic exam results were reviewed in the EMR. EKG Interpretation Critical Care Time None ? Differential Diagnosis Left knee contusion Right shoulder strain Right clavicular fracture Left patellar fracture Medical Decision Making Medical Decision Making Patient is evaluated with an channel process supervisor present. Patient is in no acute distress. Patient's allergies are reviewed and she will be given methocarbamol as well as Tylenol with codeine for management of her discomfort. Patient will be discharged home. Medications methocarbamoL (ROBAXIN) tablet 750 mg (has no administration in time range) acetaminophen-codeine (TYLENOL #3) 300-30 mg per tablet 1 tablet (has no administration in time range) Clinical Impressions as of 05/03/24 1303 Fall, initial encounter Contusion of left knee, initial encounter Right shoulder strain, initial encounter Procedures Procedures Diagnosis 1. Fall, initial encounter 2. Contusion of left knee, initial encounter 3. Right shoulder strain, initial encounter Disposition Discharge ED Prescriptions Medication Sig Dispense Start Date End Date Auth. Provider acetaminophen (TYLENOL) 500 mg tablet Take 2 tablets (1,000 mg total) by mouth every 6 (six) hours if needed for mild pain for up to 10 days. 30 tablet 05/03/2024 05/13/2024 KOKO Magaña methocarbamoL (ROBAXIN) 750 mg tablet Take 1 tablet (750 mg total) by mouth 4 (four) times a day for 7 days. 28 each 05/03/2024 05/10/2024 KOKO Magaña Physician Attestation KOKO Magaña 05/03/24 1303 Cosigned by Brendan Rivera MD at 05/03/2024 3:06 PM EST documented in this encounter Plan of Treatment Upcoming Encounters Date Type Department Care Team (Late st Contact Info) Description 05/09/2024 3:45 PM EST Treatment [facility] Occupational Therapy [address] [phone] Og Kim MENDENHALL/L 05/15/2024 3:00 PM EST Treatment [facility] Occupational Therapy [address] [place] [phone] Og Kim MENDENHALL/L 05/20/2024 10:30 AM EDT Treatment [facility] [address] [phone] Kaitlyn Carranza, PT 05/21/2024 2:00 PM EDT Treatment [facility] Occupational Therapy [address] [phone] Dav Casas, OT 05/22/2024 11:00 AM EDT Treatment [facility] [address] [phone] Kaitlyn Carranza, PT 05/27/2024 11:00 AM EDT Treatment [facility] [address] [phone] Kaitlyn Carranza, PT 05/29/2024 11:00 AM EDT Treatment [facility] Out[facility] [address] [place] [phone] Kaitlyn Carranza, PT 06/17/2024 1:15 PM EDT Office Visit Orthopedic Surgery [facility] 175 [facility] [address] [place] [phone] Traci Quinonez PA 174 [facility] [address] [place] [address] 08/06/2024 2:15 PM EDT Office Visit Bariatric Surgery [facility] 175 [facility] [address] [place] [phone] Jonas Sharma MD 175 [facility] [address] [place], [place] [phone] 09/30/2024 1:00 PM EDT Office Visit Orthopedic Surgery [facility] 250 175 [facility] [address] [place] [phone] Keith Light DPM 175 [facility] [address] [place], [place] [phone] documented as of this encounter Goals Goal Patient Goal Type Associated Problems Recent Progress Patient-Stated? Author Pt goal General Yes Dav Casas, OT Note: Get better Get hand stronger STG 4-6 visits General No Dav Casas, OT Note: Patient will report <=2/10 pain in L elbow, Patient will demo L wrist AROM improved by 10* Patient will demo L winemaker strength >= 10 to be able to [...] light IADLs , Patient will demo L winemaker strength >= 20 to be able to pull pants to waist, Patient will demo improved functional use of L upper extremity as evidenced by Quick Dash score <= 50 to be able to wash dishes, and Patient will perform HEP MOD I documented as of this encounter Procedures Procedure Name Priority Date/Time Associated Diagnosis Comments XR KNEE 4+ VIEWS LEFT STAT 05/03/2024 10:04 AM EST documented in this encounter Results * XR Knee 4+ Views Left (05/03/2024 10:04 AM EST) Anatomical Region Laterality Modality Lower Extremities, Knee Left Radiogra phic Imaging 05/03/2024 10:0 7 AM EST Impressions 05/03/2024 10:08 AM EST Normal examination. Code 16570 -------- FINAL REPORT -------- Dictated By: Sergio Martinez Dictated Date: 05/03/2024 10:07 ET Assigned Physician: Sergio Martinez Reviewed and Electronically Signed By: Sergio Martinez Signed Date: 05/03/2024 10:08 ET Workstation ID: [id number] Transcribed By: Self Edit Transcribed Date: 05/03/2024 [...] abnormality is seen. IMPRESSION: Normal examination. Code 17889 -------- FINAL REPORT -------- Dictated By: Sergio Martinez Dictated Date: 05/03/2024 10:07 ET Assigned Physician: Sergio Martinez Reviewed and Electronically Signed By: Sergio Martinez Signed Date: 05/03/2024 10:08 ET Workstation ID: [id number] Transcribed By: Self Edit Transcribed Date: 05/03/2024 10:07 ET us Brendan Rivera MD IMG XR PROCEDURES Final R esult documented in this encounter Visit Diagnoses Diagnosis Fall, initial encounter- Primary Contusion of left knee, initial encounter Right shoulder strain, initial encounter documented in this encounter Administered Medications Inactive Administered Medications - up to 3 most recent administrations Medication Order MAR Action Action Date Dose Rate Site acetaminophen-codeine (TYLENOL #3) 300-30 mg per tablet 1 tablet 1 tablet, oral, Once, On Mon05/03/24 at 1247, For 1 dose Given 05/03/2024 1:13 PM EST 1 tablet methocarbamoL (ROBAXIN) tablet 750 mg 750 mg, oral, Once, On Mon05/03/24 at 1247, For 1 dose Given 05/03/2024 1:13 PM EST 750 mg documented in this encounter Discontinued Medications Medication Sig Discontinue Reason Start Date End Da te methocarbamoL (ROBAXIN) 750 mg tablet Take 1 tablet (750 mg total) by mouth 3 times daily. 12/07/2017 05/03/2024 documented as of this encounter Active and Recently Administered Medications Times are shown in EST. Scheduled Medication Order 05/01/2024 05/02/2024 05/03/2024 acetaminophen-codeine (TYLENOL #3) 300-30 mg per tablet 1 tablet (COMPLETED) 1 tablet, oral, Once, On Mon05/03/24 at 1247, For 1 dose 1313 (Given - Provid er: Monik Pérez RN) methocarbamoL (ROBAXIN) tablet 750 mg (COMPLETED) 750 mg, oral, Once, On Mon05/03/24 at 1247, For 1 dose 1313 (Given - Provid er: Monik Pérez RN) documented in this encounter Care Teams Sales Representative Consultant Relationship Specialty Start Date End Date Fredy Rdz MD [address] [place] [phone] PCP - General Internal Medicine 12/24/20 documented as of this encounter
== END 2024-05-08 12:52 | disposition home or self-care (01) ==
PROVIDERS: PCP Internal Medicine; Visit Provider Psychiatry & Neurology Neurology
DX: G51.31 Clonic hemifacial spasm, right (principal)
CPT/HCPCS: 64612

== ENCOUNTER → 2024-05-08 12:18 | Outpatient (BNVA) | payer MEDICAID, SELFPAY | PROVIDERS: PCP Internal Medicine; Visit Provider Psychiatry & Neurology Neurology | DX: G51.31 Clonic hemifacial spasm, right (principal) | CPT/HCPCS: 64612; 99211; J0585 ==

== ENCOUNTER 2024-08-14 09:51 | Outpatient (AMB) | payer MEDICAID, SELFPAY ==
--- NOTE | 2024-08-14 10:06 | MHC.OFFVIS ---
Vital Signs 08/14/24 10:07 Height 5 ft 3 in Weight 191 lb BMI 33.8 Intake Visit Reasons: Botox appt Intake Note: Patient presents for botox injection Certified Shorthand Reporter Required: Yes Certified Shorthand Reporter Services: Certified Shorthand Reporter Present Certified Shorthand Reporter Name: shailesh tmopkins Information Interpreted: non-clinical & clinical Allergies Aspirin Allergy (Unknown, Uncoded 08/14/24 10:10) swelling Motrin Allergy (Unknown, Uncoded 08/14/24 10:10) swelling Percocet Allergy (Unknown, Uncoded 08/14/24 10:10) swelling HPI Comments Details: ?Right hemifacial spasm ??? Dizziness... History of present illness: ? 59y/o female comes for treatment with botox . she 2 root canals done in her left teeth - upper molars -she has Left trigeminal neuralgia since 2022 - today she has an appointment with the dentist to redo root canal . she reports persistent pain. ??? side effects were explained again and patient agreed to the procedure . - side effects include increased weakness , droopy eyelids weakness of facial muscles etc. Effectiveness of last two botox: Change in intensity of spasms- decreased Change in frequency of spasms-decreased Changes in quality of life- better Have at least three months elapsed since last treatment - yes Botox 100units [id number] exp 12/2026 was diluted with 1 cc of normal saline at a concentration of 10units in 0.1cc. ??? Muscles injected - ??? R lateral canthus 15units ??? Right upper eyelid laterally - 5units ??? Right lateral lower eyelid - 15 units medila lower eyelid - 5 units ??? Right upper lip 5 units ??? Right nasolabial fold - 10 units ? Right Temporalis 20 units Right mentalis 5 units ??? Total used 75 units ??? PFSH Medical History Trigeminal neuralgia Bilateral headaches Obesity Seizure Hyperlipidemia Diabetes HTN (hypertension) Sleep disorder Anxiety Depression Asthma Surgical History H/O endoscopy Hx of cholecystectomy Family History Father High blood pressure High cholesterol Heart disease Mother Arthritis Osteoporosis Heart disease High cholesterol Daughter Kidney transplant recipient Brother Kidney problem Social History Household Members: Spouse Alcohol intake: never Patient Tobacco Use Status: Never used Tobacco Physical Exam Vital Signs: BMI result Body Mass Index 33.8 Const General: cooperative and no acute distress Orientation/consciousness: patient oriented x3 Resp Effort & Inspection: normal respiratory effort and able to speak in complete sentences Neuro Other: Right upper eye lid droop Right lower facial hemispasm. Speech clear. General: patient oriented x3 Cognition (Neuro): normal cognition Psych Appearance: grossly normal Mental Status: mental status grossly normal Affect: normal affect Attitude: cooperative Office Procedures Botulinum toxin Injection 56666 - Facial Nerve Procedure code (CPT) selection complete Office Meds onabotulinumtoxinA 100 unit solution for injection Performing Provider: Michelle Sánchez MD [place] [facility] Administered by: Michelle Sánchez MD on 08/14/24 10:42 Dose Route Admin Location Dispensed Lot Number Expiration Date [facility] [employer]oom [employer]anger 75 unit subcut 100 units [id number] [employer]/BOTOX 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, right Category: Medical (2) Trigeminal neuralgia: Code(s): G50.0 - Trigeminal neuralgia Category: Medical Plan Patient tolerated the procedure well she will call with any side effects continue tegretol XR 400mg bid Will ref to for treatment of Trimeinal neurlagia Orders: Orders AMB Botulinum toxin Injection Today 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, right Referrals Neurosurgery Referral G50.0 - Trigeminal neuralgia Medications: New onabotulinumtoxinA 100 units subcut ONCE 1 ea 0RF hemifacial spasm 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, right Coding Level of Care Code Est Pt Level 3 (86207) Diagnoses 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
[2024-08-14 10:07] VITALS: BMI 33.8
--- OUTSIDE RECORDS SUMMARY | 2024-08-14 10:25 | XMS_ITS | Encounter Summary ---
Author Organization [facility] Address [address] [place] [address] Care Team Providers Care Complaint Inspector Name Role Phone Fredy Rdz MD Primary Care Provider [phone] Encounter Details Date Type Department Care Team ([facility] st Contact Info) Description 06/25/2024 Results Follow-Up [facility] [address] [place] [phone] Sam Gaspar, PharmD [address] [place] [address] HGBA1C W/MPG Social History Tobacco Use Types Packs/Day Years [...] Orientation Straight 12/20/2016 10 :10 AM PDT documented as of this encounter Miscellaneous Notes * Result Encounter Note - Sam Cartwright PharmD - 06/25/2024 9:01 AM EDT A1c shows excellent glycemic control at 5.7%. Continue current regimen. Patient was advised to follow healthy diet and exercise during recent encounter. Please reiterate importance of diet and adherence to medications. Pharmacotherapy for diabetes: - metformin XR 500 mg BID - Tirzepatide 10 mg weekly (prescribed by Dr. Dillon) Please inform patient, thanks!! documented in this encounter Plan of Treatment Upcoming Encounters Date Type Department Care Team (Late st Contact Info) Description 08/15/2024 1:20 PM EDT Office Visit [facility] [address] [place] [address] Malachi Elder PA-C [address] [place] [address] documented as of this encounter Visit Diagnoses Not on filedocumented in this encounter Additional Health Concerns Assessment Noted Time PHQ-9 Depression Total Score: 0 03/15/19 25 10:29 AM PST documented as of this encounter Care Teams Complaint Inspector Relationship Specialty Start Date End Date Fredy Rdz MD [address] [place] [address] PCP - General Internal Medicine 04/12/19 documented as of this encounter
== END 2024-08-14 10:36 | disposition home or self-care (01) ==
LOC: HO.HSMS 09:52
PROVIDERS: PCP Internal Medicine; Visit Provider Psychiatry & Neurology Neurology
DX: G51.31 Clonic hemifacial spasm, right (principal)
CPT/HCPCS: 64612

== ENCOUNTER → 2024-08-14 09:51 | Outpatient (BNVA) | payer MEDICAID, SELFPAY | PROVIDERS: PCP Internal Medicine; Visit Provider Psychiatry & Neurology Neurology | DX: G51.31 Clonic hemifacial spasm, right (principal); G50.0 Trigeminal neuralgia | CPT/HCPCS: 64612; 99211; J0585 ==

== ENCOUNTER 2024-12-10 13:58 | Outpatient (AMB) | payer MEDICAID, SELFPAY ==
--- OUTSIDE RECORDS SUMMARY | 2024-12-05 13:45 | XMS_ITS | Encounter Summary ---
Author Organization [facility] Address [address] [place] [address] Care Team Providers Care Beauty Operator Name Role Phone Fredy Rdz MD Primary Care Provider [phone] Reason for Referral * Consultation (Routine) - Pending Review Specialty Diagnoses / Procedures Referred By Carolina freeman Referred To Contact Pain Medicine Diagnoses Chronic pain of left knee Lesly Johnson MD [address] [facility] [address] [place] [address] Phone: tel: fax: [facility] [address] [place] [address] [address] [place], [place] Phone: tel: fax: Referral ID Status Reason Start Date Expiration Date Visits Requested Visits Authorized [id number] Pending Review Specialty Services Required 12/06/2024 12/06/2025 1 1 Reason for Visit * Reason Comments Follow-up MRI results Encounter Details Date Type Department Care Team ([facility] Contact Info) Description 12/05/2024 1:45 PM EDT Office Visit Orthopedic Surgery - [place] [address] [facility] [address] [place] [phone] Lesly Johnson MD 175 [facility] [address] [place] [address] Chronic pain of left knee (Primary Dx); Pain of left hip Social History Tobacco Use Types Packs/Day Years [...] as of this encounter Progress Notes * Lesly Johnson MD - 12/05/2024 1:45 PM EDT Denise Harrison CC: Chief Complaint Patient presents with Left Knee - Follow-up MRI results Patient was seen with video interpreter translator Kendal moe #[id number] HPI: Ms Harrison is here to follow-up with her left knee pain. She underwent an MRI to evaluate for possible focal chondral defect or meniscus tear. I reviewed the MRI with her which did show some milddegenerative changes in the medial compartment. There was a horizontal signal within the posterior horn of the medial meniscus which does not definitively touch articular surface so may be degenerative in nature. No definitive medial or lateral meniscus tear is noted. She states her knee is still significantly painful with weightbearing. She generally has no significant pain at rest. ROS: Constitutional: no fever Eyes: negative for redness, drainage ENT: negative for ear pain or discharge Cardiovascular: negative for pain Respiratory: no cough GI: no vomiting or diarrhea, stomach ache, change in BMs : normal voiding Musculoskeletal: see HPI Skin: no rash Neurologic: negative for headache, dizziness The remainder of the systems is noncontributory PMH: Patient Active Problem List Diagnosis Date Noted Abnormal liver function tests 01/26/2024 Allergic rhinitis 01/26/2024 Asthma 01/26/2024 Central obesity 01/26/2024 Dyslipidemia 01/26/2024 Lumbar spondylosis 01/26/2024 Morbid obesity (CMS/HCC V24, CMS/HCC V28) 01/26/2024 Severe obesity (BMI 35.0-39.9) with comorbidity (CMS/HCC V24, CMS/HCC V28) 01/26/2024 Plantar fasciitis, bilateral 01/26/2024 Proteinuria 01/26/2024 Psychogenic nonepileptic seizure 01/26/2024 Radiculitis, lumbosacral 01/26/2024 Hypertension 01/26/2024 Chronic pain syndrome 01/26/2024 Obstructive sleep apnea syndrome 01/26/2024 DM (diabetes mellitus) ([facility] V24, [facility] V28) 12/18/2023 Hyperlipidemia 12/18/2023 Fibromyalgia 12/18/2023 History of [...] complication, without long-term current use of insulin ([facility] V24, [facility] V28) 10/05/2017 HONORIO (obstructive sleep apnea) 10/05/2017 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 Myopia of right eye 07/29/2016 Pinguecula of right eye 07/29/2016 Presbyopia 07/29/2016 Regular astigmatism of both eyes 07/29/2016 Stationary peripheral pterygium of left eye 07/29/2016 Type 2 diabetes mellitus with obesity ([facility] V24, [facility] V28) 04/29/2016 PSH: Past Surgical History: Procedure Laterality Date CHOLECYSTECTOMY PROCEDURE: VT LAPAROSCOPY SURG CHOLECYSTECTOMY OTHER SURGICAL HISTORY PROCEDURE: VT LAPS GASTRIC RESTRICTIVE PROCEDURE PLACE DEVICE Medications: Current Outpatient Medications: alcohol swabs pads, medicated, 1 (one) time. USE two (2) times a day AND FOR INJECT ozempic, Disp: , Rfl: atorvastatin (LIPITOR) 20 mg tablet, Take 1 tablet (20 mg total) by mouth 1 (one) time each day., Disp: , Rfl: azelastine (OPTIVAR) 0.05 % ophthalmic solution, Administer 1 drop into affected eye(s) 2 times daily., Disp: , Rfl: blood-glucose meter mis, daily., Disp: , Rfl: buPROPion XL (WELLBUTRIN XL) 150 mg 24 hr tablet, Take 1 Tablet by mouth daily, Disp: , Rfl: calcium citrate-vitamin D3 250 mg-5 mcg (200 unit) tablet, 1 tablet., Disp: , Rfl: carBAMazepine (TEGretol) 200 mg tablet, TAKE 1 TABLET BY MOUTH two (2) times a day, Disp: , Rfl: chlorthalidone (HYGROTON) 25 mg tablet, Take 1 tablet (25 mg total) by mouth 1 (one) time each day., Disp: , Rfl: clonazePAM (KlonoPIN) 0.5 mg tablet, Take 1 tablet (0.5 mg total) by mouth 1 (one) time each day ifneeded., Disp: , Rfl: cyclobenzaprine (FLEXERIL) 10 mg tablet, Take 1 tablet (10 mg total) by mouth 3 times daily as needed., Disp: , Rfl: docusate sodium (COLACE) 100 mg capsule, Take 1 capsule (100 mg total) by mouth 2 times daily., Disp: , Rfl: doxepin (SINEquan) 10 mg capsule, TAKE ONE CAPSULE BY MOUTH DAILY AT BEDTIME FOR SLEEP, Disp: , Rfl: ergocalciferol (VITAMIN D-2) 1,250 mcg (50,000 unit) capsule, TAKE ONE CAPSULE BY MOUTH EACH WEEK FOR 8 DOSES, Disp: , Rfl: FLUoxetine (PROzac) 20 mg capsule, Take 1 capsule (20 mg total) by mouth., Disp: , Rfl: FLUTICASONE PROPION-SALMETEROL INHL, Inhale into the lungs., Disp: , Rfl: fluticasone propionate (FLONASE) 50 mcg/actuation nasal spray, Administer 1 spray into affected nostril(s) daily., Disp: , Rfl: gabapentin (NEURONTIN) 800 mg tablet, Take 1 tablet (800 mg total) by mouth 3 (three) times a day.,Disp: , Rfl: glipiZIDE (GLUCOTROL) 10 mg tablet, Take 1 tablet (10 mg total) by mouth 2 (two) times a day beforemeals., Disp: , Rfl: glucose blood test strip, once daily E11.69 Check daily, Disp: , Rfl: hydrOXYzine pamoate (VISTARIL) 25 mg capsule, TAKE 1 TO 2 CAPSULES BY MOUTH two (2) times a day NEEDED, Disp: , Rfl: Inject Ease Lancets 28 gauge lancets, USE TO TEST FINGER STICK BLOOD SUGAR ONCE DAILY, Disp: , Rfl: lisinopriL (PRINIVIL,ZESTRIL) 5 mg tablet, Take 1 tablet (5 mg total) by mouth 1 (one) time each day., Disp: , Rfl: loratadine 10 mg capsule, Take 1 Tablet by mouth daily, Disp: , Rfl: metFORMIN XR (GLUCOPHAGE-XR) 500 mg 24 hr tablet, TAKE 1 TABLET two (2) times a day WITH A MEAL, Disp: , Rfl: methocarbamoL (ROBAXIN) 750 mg tablet, Take 1 tablet (750 mg total) by mouth 4 (four) times a day for 7 days., Disp: 28 each, Rfl: 0 methylPREDNISolone (MEDROL DOSPAK) 4 mg tablet, TAKE DIRECTED PER PACKAGE instructions, Disp: , Rfl: miscellaneous medical supply [facility], by Other route daily., Disp: , Rfl: montelukast (SINGULAIR) 10 mg tablet, Take 1 tablet (10 mg total) by mouth at bedtime., Disp: , Rfl: OLANZapine (ZyPREXA) 10 mg tablet, Take 1 tablet (10 mg total) by mouth., Disp: , Rfl: omeprazole (PriLOSEC) [address] capsule, Take 1 capsule (20 mg total) by mouth 1 (one) time each day., Disp: , Rfl: polyethylene glycol (PEG) 17 gram/dose oral powder, DISSOLVE 17 gramos IN WATER AND TAKE ONCE DAILY, Disp: , Rfl: propranoloL (INDERAL) 20 mg tablet, Take 1 tablet (20 mg total) by mouth 1 (one) time each day., Disp: , Rfl: sertraline (ZOLOFT) 100 mg tablet, Take 1 tablet (100 mg total) by mouth 1 (one) time each day., Disp: , Rfl: sucralfate (CARAFATE) 100 mg/mL suspension, Take 10 mL (1 g total) by mouth., Disp: , Rfl: SUMAtriptan (IMITREX) 100 mg tablet, TAKE 1 TABLET BY MOUTH NEEDED for migraine. TAKE 1 TAB AT onset REPEAT IN 2 HOUR NEEDED . maximum 2 TAB ONCE DAILY, Disp: , Rfl: Allergies: Allergies Allergen Reactions Carrot Hives and Rash Other Reaction(s): UNKNOWN Per [facility]- Itching in face and Hands-Also pt allergic to Fresh Fruit and Vegatables. Carrot Juice Other Reaction(s): Hives/Urticaria, Rash/Dermatitis Per [facility]- Itching in face and Hands-Also pt allergic to Fresh Fruit and Vegatables. Apple Itching Ascorbic Acid As per [facility]- Itchin in mouth and throat. Ascorbic Acid (Vitamin C) Other Reaction(s): itching in mouth and throat As per [facility]- Itchin in mouth and throat. Aspirin Oxycodone Itching Pioglitazone Patient reports mediaction causes throat discomfort Patient reports mediaction causes throat discomfort Raspberry Other Reaction(s): itching and swelling in mouth and throat SHx: Social History Tobacco Use Smoking status: Never Smokeless tobacco: Never Substance Use Topics Alcohol use: No FHx: No family history on file. Physical Exam: Visit Vitals OB Status Unknown Smoking Status Never Gen: No acute distress. Pleasant Eyes: PERRL, EOMI ENT: Mucous membranes moist Resp:Normal respiratory effort Lymphatics: No noted lymphadenopathy MSK: Knee Exam: Left Inspection: No genu varus or valgus noted. No effusion. Normal gait. . Palpations: Focal TTP over medial femoral condyle, MCL and pes anserine tendons and bursa. strength: 5/5. ROM-full. Varus stressat 20 degree and full extension - nl. Valgus stress at at 20 degree and full extension - nl. Special testing: All special testing causes pain but no laxity is noted on ligamentous exam Hip exam: No significant tenderness around the anterior or lateral hip. Range of motion is full andstrength is intact. She does report tenderness to palpation over the medial thigh along the adductor. Neurovascular: Sensation to light touch: Intact and symmetric. DTR: Intact and symmetric. Peripheral pulses: Intact and symmetric. Cap. Refill: brisk. Radiographic/Imaging: MRI left knee IMPRESSION: 1. Mild degenerative changes along the medial tibiofemoral compartment 2. No meniscal or ligamentous injury to the left knee 3 views of the left hip were obtained and reviewed. here is no evidence of fractures or dislocations. There are minimal degenerative changes in the left hip joint with osteophytes arising from the acetabular margin. There is no abnormal soft tissue calcifications. SI joints are grossly normal. There is a surgical clip in the right lower quadrant. CONCLUSIONS: Mild degenerative changes as detailed. All images are stored and permanently retrievable Assessment: 1) Left knee pain: She has minimal degenerative change noted in the medial compartment of the left knee. Unfortunately she was unable to tolerate any physical therapy due to increase in pain. She also did not respond to corticosteroid injection done in September. There is no evidence of definitive menisc us tear chondral defect bone marrow edema or other abnormality on her MRI. I discussed possibility of pain being referred from the hip. X-rays were obtained and there is no significant degenerative change on her hip x-ray. I discussed more unusual etiology of medial knee pain could be related to saphenous neuritis or nerve entrapment. I discussed referral to pain management to discuss a saphenousnerve block. Plan: 1)refer to pain management for evaluation for saphenous nerve block 2) continue arthritis dose Tylenol. 3) follow-up after evaluation from pain management. All of the patient's questions were answered. The patient understand and feels comfortable with thecurrent care plan. Thanks for allowing me to be a part of the patient's care team! Please feel free to contact me for any reason. Sincerely, Lesly Johnson MD. ON 12/06/2024 at 2:38 PM EDT documented in this encounter Plan of Treatment Upcoming Encounters Date Type Department Care Team (Late st Contact Info) Description 12/18/2024 1:30 PM EDT Office Visit Orthopedic Surgery - [place] [address] [facility] [address] [place] [phone] Keith Light DPM 175 [facility] [address] [place] [address] 02/11/2025 1:15 PM EST Office Visit Bariatric Surgery [facility] 175 [facility] [address] [place] [phone] Jonas Sharma MD [address] [place] [phone] Scheduled Referrals Name Type Priority Associated Diagnoses Order Schedule Ambulatory referral to Interventional Pain Medicine Outpatient Referral Routine Chronic pain of left knee 1 Occurrences starting 12/06/2024 until 12/06/2025 documented as of this encounter Goals Goal Patient Goal Type Associated Problems Recent Progress Patient-Stated? Author Pt goal General Yes Dav Casas, OT Note: Get better Get hand stronger documented as of this encounter Results * XR Hip 2-3 Views Left (12/05/2024 2:28 PM EDT) Anatomical Region Laterality Modality Lower Extremities, Hip Left Computed Radiography 12/05/2024 5:44 PM EDT Narrative 12/05/2024 5:45 PM EDT AP view of the pelvis. Left hip frog-leg view. History pain. There is no evidence of fractures or dislocations. There are minimal degenerative changes in the left hip joint with osteophytes arising from the acetabular margin. There is no abnormal soft tissue calcifications. SI joints are grossly normal. There is a surgical clip in the right lower quadrant. CONCLUSIONS: Mild degenerative changes as detailed. -------- FINAL REPORT -------- Dictated By: Mirna Ventura Dictated Date: 12/05/2024 17:44 ET Assigned Physician: Mirna Ventura Reviewed and Electronically Signed By: Mirna Ventura Signed Date: 12/05/2024 17:45 ET Workstation ID: [id number] Transcribed By: Self Edit Transcribed Date: 12/05/2024 17:44 ET Procedure Note Mirna Ventura MD - 12/05/2024 AP view of the pelvis. Left hip frog-leg view. History pain. There is no evidence of fractures or dislocations. There are minimaldegenerative changes in the left hip joint with osteophytes arising fromthe acetabular margin. There is no abnormal soft tissue calcifications. SIjoints are grossly normal. There is a surgical clip in the right lowerquadrant. CONCLUSIONS: Mild degenerative changes as detailed. -------- FINAL REPORT -------- Dictated By: Mirna Ventura Dictated Date: 12/05/2024 17:44 ET Assigned Physician: Mirna Ventura Reviewed and Electronically Signed By: Mirna Ventura Signed Date: 12/05/2024 17:45 ET Workstation ID: [id number] Transcribed By: Self Edit Transcribed Date: 12/05/2024 17:44 ET us Lesly Johnson MD IMG XR PROCEDURES Final Result documented in this encounter Visit Diagnoses Diagnosis Chronic pain of left knee- Primary Pain of left hip documented in this encounter Care Teams Beauty Operator Relationship Specialty Start Date End Date Fredy Rdz MD [address] [place] [address] PCP - General Internal Medicine 08/09/24 documented as of this encounter
--- NOTE | 2024-12-10 14:00 | A.OFFVIS_ITS ---
Vital Signs 12/10/24 14:02 Height 5 ft 3 in Weight 178 lb 8 oz BMI 31.6 BP 112/76 Blood Pressure Location Rt brachial Position Sitting Pulse 83 Pulse Source Pulse Oximeter Pulse Oximetry (%) 99 Oxygen Delivery Method Room Air Intake Visit Reasons: Botox Intake Note: Botox Circular Saw Edge Fuser Required: Yes Accompanied by: Self / Same As Patient Allergies Aspirin Allergy (Unknown, Uncoded 08/14/24 10:10) swelling Motrin Allergy (Unknown, Uncoded 08/14/24 10:10) swelling Percocet Allergy (Unknown, Uncoded 08/14/24 10:10) swelling Medication List - Last Reconciled 12/10/24 by Michelle Sánchez MD acetaminophen (Pain Relief Extra Strength (acetaminophen)) 500 mg PO Q6H PRN atorvastatin 20 mg PO DAILY baclofen 5 mg PO BID bupropion HCl XL 150 mg PO DAILY [id number]-alxm 50-325-40 mg 1 tab PO Q4H PRN carbamazepine ER (Tegretol XR) 400 mg PO BID chlorthalidone 25 mg PO DAILY clonazepam 0.5 mg PO DAILY PRN fluoxetine 20 mg PO DAILY gabapentin 800 mg PO BID lisinopril 5 mg PO DAILY loratadine 10 mg PO DAILY metformin ER 1,000 mg PO BID montelukast 10 mg PO DAILY omeprazole 20 mg PO DAILY onabotulinumtoxinA (Botox) 100 units subcut .90 days polyethylene glycol 3350 17 grams PO DAILY propranolol 20 mg PO DAILY sertraline 25 mg PO DAILY sumatriptan succinate 100 mg PO Q2-4H PRN tirzepatide (weight loss) (Zepbound) patient doing 12mg white petrolatum-mineral oil 94-3 % (Systane Nighttime) 0.25 inches ophthalmic- Right BID PRN 7 days HPI Comments Details: ?Right hemifacial spasm ??? Dizziness... History of present illness: ? 59y/o female comes for treatment with botox . ??? side effects were explained again and patient agreed to the procedure . - side effects include increased weakness , droopy eyelids weakness of facial muscles etc. Effectiveness of last two botox: Change in intensity of spasms- decreased Change in frequency of spasms-decreased Changes in quality of life- better Have at least three months elapsed since last treatment - yes Botox 100units [id number] exp 01/2027 was diluted with 1 cc of normal saline at a concentration of 10units in 0.1cc. ??? Muscles injected - ??? R lateral canthus 15units ??? Right upper eyelid laterally - 5units ??? Right lateral lower eyelid - 15 units medila lower eyelid - 5 units ??? Right upper lip 5 units ??? Right nasolabial fold - 10 units ? Serg Temporalis 20 units Right mentalis 5 units ??? Total used 95 units ??? PFSH Medical History Trigeminal neuralgia Bilateral headaches Obesity Seizure Hyperlipidemia Diabetes HTN (hypertension) Sleep disorder Anxiety Depression Asthma Surgical History H/O endoscopy Hx of cholecystectomy Family History Father High blood pressure High cholesterol Heart disease Mother Arthritis Osteoporosis Heart disease High cholesterol Daughter Kidney transplant recipient Brother Kidney problem Social History Household Members: Spouse Alcohol intake: never Patient Tobacco Use Status: Never used Tobacco Physical Exam Vital Signs: Last Vital Signs Pulse 83 12/10/24 14:02 BP 112/76 12/10/24 14:02 Pulse Ox 99 12/10/24 14:02 Oxygen Delivery Method Room Air 12/10/24 14:02 BMI result Body Mass Index 31.6 Const General: cooperative and no acute distress Orientation/consciousness: patient oriented x3 Resp Effort & Inspection: normal respiratory effort and able to speak in complete sentences Neuro Other: Right upper eye lid droop Right lower facial hemispasm. Speech clear. General: patient oriented x3 Cognition (Neuro): normal cognition Psych Appearance: grossly normal Mental Status: mental status grossly normal Affect: normal affect Attitude: cooperative Office Procedures Botulinum toxin Injection 88116 - Facial Nerve Procedure code (CPT) selection complete Office Meds onabotulinumtoxinA 100 unit solution for injection Performing Provider: Michelle Sánchez MD [place]forming [place] [facility] Administered by: Michelle Sánchez MD on 12/10/24 14:39 Dose Route Admin Location Dispensed Lot Number Expiration Date [facility] [employer] 100 unit subcut 100 units [id number] [employer]ER[employer] /BOTOX Total Dispensed Waste 100 units 0 % Comments: see HPI Assessment & Plan Assessment & Plan (1) 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
[2024-12-10 14:02] VITALS: BP 112/76; PULSE 83; O2SAT 99; BMI 31.6
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
== END 2024-12-10 14:38 | disposition home or self-care (01) ==
LOC: HO.HSMS 13:59
PROVIDERS: PCP Internal Medicine; Visit Provider Psychiatry & Neurology Neurology
DX: G51.31 Clonic hemifacial spasm, right (principal); G50.0 Trigeminal neuralgia
CPT/HCPCS: 64612

== ENCOUNTER → 2024-12-10 13:58 | Outpatient (BNVA) | payer MEDICAID, SELFPAY | PROVIDERS: PCP Internal Medicine; Visit Provider Psychiatry & Neurology Neurology | DX: G51.31 Clonic hemifacial spasm, right (principal); G50.0 Trigeminal neuralgia | CPT/HCPCS: 64612; 99211; J0585 ==

== ENCOUNTER 2025-02-18 10:04 | Outpatient (REF) | payer MEDICAID, SELFPAY ==
[2025-02-18 13:25] LABS: MANUAL DIFF FLAG NO
[2025-02-18 14:04] LABS: Hematocrit 42.0 % (37.0-47.0); Hemoglobin 13.8 g/dl (12.0-16.0); Imm Gran Abs Auto 0.02 X10*3/uL (0.00-0.03); Imm Gran Pct Auto 0.2 % (0.0-0.4); Lymphocytes Absolute Auto 2.7 X10*3/uL (1.2-4.9); Mean Corpuscular HGB Conc 32.9 g/dl (31.0-35.0); Mean Corpuscular Hemoglobin 29.7 pg (27.0-33.0); Mean Corpuscular Volume 90.3 fL (80.0-98.0); NRBC Abs Auto 0.000 X10*3/uL (0.0-0.012); NRBC Pct Auto 0.0 /100WBC (0.0-0.2); Platelet Count 292 X10*3/uL (160-400); Red Blood Count 4.65 X10*6/uL (4.20-5.50); White Blood Count 9.4 X10*3/uL (4.8-10.8)
[2025-02-18 14:17] LABS: Alanine Aminotransferase 20 U/L (0-31); Albumin Level 4.7 g/dL (3.5-5.0); Alkaline Phosphatase 55 U/L (39-117); Anion Gap 13 (12-20); Aspartate Amino Transferase 22 U/L (5-31); Blood Urea Nitrogen 21 mg/dL (9-16); Calcium 10.2 mg/dL (8.4-10.2); Carbon Dioxide 32 mmol/L (22-29); Chloride 102 mmol/L (96-108); Estimated Glomerular Filt Rate > 60; Potassium 3.7 mmol/L (3.3-5.1); Sodium 143 mmol/L (135-145); Total Protein 7.6 g/dL (6.5-8.0)
[2025-02-18 15:22] LABS: Carbamazepine Tegretol < 2.0 mcg/mL (5.0-12.0)
== END 2025-02-18 10:05 | disposition home or self-care (01) ==
LOC: HO.HKASLDS 10:04
PROVIDERS: PCP Internal Medicine; Visit Provider Psychiatry & Neurology Neurology
DX: G51.31 Clonic hemifacial spasm, right (principal); G50.0 Trigeminal neuralgia
CPT/HCPCS: 36415; 80053; 80156; 85025

== ENCOUNTER 2025-02-18 10:04 | Outpatient (AMB) | payer MEDICAID, SELFPAY ==
--- NOTE | 2025-02-18 10:19 | A.OFFVIS_ITS ---
Vital Signs 02/18/25 10:20 Height 5 ft 3 in Weight 173 lb 2 oz BMI 30.7 BP 120/78 Blood Pressure Location Rt brachial Position Sitting Pulse 81 Pulse Source Pulse Oximeter Pulse Oximetry (%) 99 Oxygen Delivery Method Room Air Intake Visit Reasons: Botox Intake Note: Botox Bee Producer Required: Yes Bee Producer Services: Bee Producer Offered & Declined Accompanied by: Self / Same As Patient Allergies Aspirin Allergy (Unknown, Uncoded 02/18/25 10:19) swelling Motrin Allergy (Unknown, Uncoded 08/14/24 10:10) swelling Percocet Allergy (Unknown, Uncoded 08/14/24 10:10) swelling HPI Comments Details: ?Right hemifacial spasm ??? Dizziness... History of present illness: ? 59y/o female comes for treatment with botox . she had surgery for her Left trigeminal neuralgia At [facility] 1 month ago ??? side effects were explained again and patient agreed to the procedure . - side effects include increased weakness , droopy eyelids weakness of facial muscles etc. Effectiveness of last two botox: Change in intensity of spasms- decreased Change in frequency of spasms-decreased Changes in quality of life- better Have at least three months elapsed since last treatment - yes Botox 100units [id number] exp 02/2027 was diluted with 1 cc of normal saline at a concentration of 10units in 0.1cc. ??? Muscles injected - ??? R lateral canthus 15units ??? Right upper eyelid laterally - 5units ??? Right lateral lower eyelid - 15 units medila lower eyelid - 5 units ??? Right upper lip 5 units ??? Right nasolabial fold - 10 units ? Serg Temporalis 20 units Right mentalis 5 units ??? Total used 95 units ??? PFSH Medical History Trigeminal neuralgia Trigeminal neuralgia Bilateral headaches Obesity Seizure Hyperlipidemia Diabetes HTN (hypertension) Sleep disorder Anxiety Depression Asthma Surgical History H/O endoscopy Hx of cholecystectomy Family History Father High blood pressure High cholesterol Heart disease Mother Arthritis Osteoporosis Heart disease High cholesterol Daughter Kidney transplant recipient Brother Kidney problem Social History Household Members: Spouse Alcohol intake: never Patient Tobacco Use Status: Never used Tobacco Physical Exam Vital Signs: Last Vital Signs Pulse 81 02/18/25 10:20 BP 120/78 02/18/25 10:20 Pulse Ox 99 02/18/25 10:20 Oxygen Delivery Method Room Air 02/18/25 10:20 BMI result Body Mass Index 30.7 Const General: cooperative and no acute distress Orientation/consciousness: patient oriented x3 Resp Effort & Inspection: normal respiratory effort and able to speak in complete sentences Neuro Other: Right upper eye lid droop Right lower facial hemispasm. Speech clear. General: patient oriented x3 Cognition (Neuro): normal cognition Psych Appearance: grossly normal Mental Status: mental status grossly normal Affect: normal affect Attitude: cooperative Office Procedures Botulinum toxin Injection 77821 - Facial Nerve Procedure code (CPT) selection complete Office Meds onabotulinumtoxinA 100 unit solution for injection Performing Provider: Michelle Sánchez MD Performing Location: [facility] Administered by: Michelle Sánchez MD on 02/18/25 10:55 Dose Route Admin Location Dispensed Lot Number Expiration Date [facility] Bean Sorter 95 unit subcut 100 units [id number] [employer] 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
[2025-02-18 10:20] VITALS: BP 120/78; PULSE 81; O2SAT 99; BMI 30.7
== END 2025-02-18 10:49 | disposition home or self-care (01) ==
LOC: HO.HSMS 10:05
PROVIDERS: PCP Internal Medicine; Visit Provider Psychiatry & Neurology Neurology
DX: G51.31 Clonic hemifacial spasm, right (principal)
CPT/HCPCS: 64612